=== PATIENT | male | born 1950 | race Caucasian/White ===

== ENCOUNTER 2023-03-06 13:39 | Inpatient (IN) ==
--- OUTSIDE RECORDS SUMMARY | 2023-03-06 13:45 | External Medical Summary ---
Author Name Unknown Address Unknown Organization K01:[facility] [place] [address] [facility] [address] Laboratory Report Ordering Provider Test Date Status INDIA MCCRARY 01/13/2023 09:25:32 Final Observation Date Value Abnormality Reference (Units ) Status SYNC LEUKOCYTES IN BLOOD BY AUTOMATED COUNT 01/13/2023 09:25:32 9.09 4.00-10.80 (K/uL) Final Segs 01/13/2023 09:25:32 41.9 40.0-75.0 (%) Final Lymphs % 01/13/2023 09:25:32 39.6 18.0-42.0 (%) Final Monos 01/13/2023 09:25:32 14.2 Above high normal 1.0-11.0 (%) Final Eosinophils 01/13/2023 09:25:32 3.1 0.0-6.0 (%) Final Basos 01/13/2023 09:25:32 0.9 0.0-2.0 (%) Final Immature Granulocyte, Percent 01/13/2023 09:25:32 0.3 0.0-2.0 (%) Final Absolute Segs 01/13/2023 09:25:32 3.81 1.80-7.70 (K/uL) Final Lymphs, absolute 01/13/2023 09:25:32 3.60 1.00-4.80 (K/ul) Final Monos, Abs 01/13/2023 09:25:32 1.29 Above high normal 0.00-1.10 (K/uL) Final Eos, Abs 01/13/2023 09:25:32 0.28 0.00-0.70 (K/uL) Final Basos, Abs 01/13/2023 09:25:32 0.08 0.00-0.20 (K/uL) Final Immature Granulocytes, Number 01/13/2023 09:25:32 0.03 0.00-0.20 (K/uL) Final Performing Location [facility] [place] [address] [facility] [address]
--- OUTSIDE RECORDS SUMMARY | 2023-03-06 13:45 | External Medical Summary | Summary of Care ---
Author Name Unknown Organization [facility] Address [address] [place] [address] Phone [phone] Care Team Providers Care Early Learning Teacher Name Role Phone Ginny Borjas DO Primary Care Provider Reason for Visit * Reason Onset Date Comments Health Maintenance 03/02/2023 Encounter Details Date Type Department Care Team (Late st Contact Info) Description 03/02/2023 Telephone Family Medicine [address] [phone] Ginny Borjas DO [address] [place] [address] [place] [address] Health Maintenance Allergies Active Allergy Reactions Criticality Noted Date Comments Cephalexin Hives High 05/11/2017 Hives, elev BP documented as of this encounter (statuses as of 03/02/2023) Medications Medication Sig Dispensed Refills Start Date End Date Status Vitamin E 180 MG (400 UNIT) Oral Capsule Take 1 Capsule by mouth in the morning. 0 02/26/2022 Active hydroCHLOROthiazide 12.5 MG Oral Tablet (Hydrodiuril) Take 1 Tablet by mouth in the morning. 90 Tablet 3 01/31/2023 Active Losartan Potassium 50 MG Oral Tablet (Cozaar) Take 1 Tablet by mouth in the morning. 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 Chronic kidney disease, stage 3a 03/17/2020 Overview: Per CKD protocol Generalized osteoarthritis 02/21/2018 Status post left hip replacement 08/31/2017 Status post right knee replacement 05/11/2017 Status post left knee replacement 05/11/2017 Snores 05/11/2017 Essential hypertension with goal blood pressure less than 140/90 documented as of this encounter (statuses as of 03/02/2023) Resolved Problems Problem Noted Date Diagnosed Date Resolved Date Superficial thrombophlebitis of left upper extremity 02/23/2022 06/07/2022 Acute bronchitis, antibiotics not indicated 11/28/2018 02/20/2020 Body mass index (BMI) of 40. 0 to 44.9 in adult 03/20/2018 11/17/2018 Overview: Per Obesity protocol #1 Primary osteoarthritis of left hip 05/11/2017 08/31/2017 Essential hypertension 05/11/201710/26 Morbid obesity with BMI of 40.0-44.9, adult 05/19/2022 Overview: Per Obesity protocol documented as of this encounter (statuses as of 03/02/2023) Immunizations Name Administration Dates Next Due COVID-19 mRNA, LNP-s, No Pre serve, 2-Dose Series (Moderna) 12/28/2020,05/14/2020,04/16/2020 Pneumococcal Conjugate Vacc, 13 Valent (Prevnar) 05/11/2017 Pneumococcal Polysaccharide PPV23 (Pneumovax) 10/26/2018 Season Influenza, Quad, PF, Adjuvanted, 65+ Yrs, IM (FLUAD) 11/27/2019 Seasonal Influenza, PF, 6 M & above, IM , (FluLaval or Fluzone) 12/05/2017,12/08/2014,12/08/2013 Seasonal Influenza, Quadriva lent Hd (Fluzone Hd) 02/17/2022 Seasonal Influenza, Trivalen t, Adjuvanted, 65+ yrs 11/05/2020,02/02/2019 TDAP (age 10 and older)(Boostrix) 05/11/2017,03/2006 documented as of this encounter Social History Tobacco Use Types Packs/Day Years Used Date Smoking Tobacco: Never Smokeless Tobacco: Former Alcohol Use Standard Drinks/Week Comments Yes 8 (1 standard drink = 0.6 oz pure alcohol) He is drinking nonalcoholic beer now AUDIT-C Answer Date Recorded Frequency of Alcohol Consumption 2-3 times a wee k 02/21/2018 Average Number of Drinks Not on file 018 Frequency of Binge Drinking Not on file 02/04 PHQ-2 Answer Date Recorded PHQ-2 Score 0 11/27/2019 Hunger Vital Sign Answer Date Recorded Worried About Running Out of Food in the Last Ye ar Never true 11/27/2019 Ran Out of Food in the Last Year Never true 11/27/2019 Sex and Gender Information Value Date Recorded Sex Assigned at Not on file Gender Identity Not on file Sexual Orientation Not on file Job Start Date Occupation Industry Not on file Not on file Not on file documented as of this encounter Miscellaneous Notes * Telephone Encounter - Sarah Tipton LPN - 03/02/2023 2:01 PM EST Care Gaps Comprehensive Care Outreach Last Office/Telemedicine Visit: 01/19/2022 (in office), Visit date not found (telemedicine) Next Office Visit: Visit date not found Hemoglobin AIC Results: Lab Results Component Value Date/Time HEMOGLOBIN A1C - [facility] 5.7 (H) 04/17/2021 10:30 AM HEMOGLOBIN A1C - [facility] 5.5 02/20/2020 10:39 AM Reviewed Health Maintenance below: Health Maintenance Topic Date Due Colorectal Cancer Screening Never done Zoster Vaccines (1 of 2) Never done Depression Screening 11/26/2020 Albumin/Creatinine Ratio 02/19/2021 CKD PHOS USE SMARTSET 57846 04/17/2022 Influenza Vaccine (FLU shot) (1) 11/05/2022 COVID-19 Vaccine ( season) 2022 GFR 07/14/2023 Colon Urine/labs ov Care Gap Outreach Action Taken: Unable to reach no vm documented in this encounter Plan of Treatment Health Maintenance Due Date Last Done Comments Cologuard 1996 Colonoscopy 1996 Colorectal Cancer Screening 1996 Fecal Occult Blood Test 1996 Sigmoidoscopy 1996 Zoster Vaccines (1 of 2) 2001 Depression Screening 11/26/2020 11/27/2019 Albumin/Creatinine Ratio 02/19/2021 02/20/2020, 10/06 CKD PHOS USE SMARTSET [id number] 04/17/2022 04/17/2021 COVID-19 Vaccine ( season) 2022 12/28/2020, 05/14/2020, 04/16/2020 Influenza Vaccine (FLU shot) (#1) 2022 02/17/2022, 11/05/2020, 11/27/2019, Additional history exists GFR 07/14/2023 01/13/2023, 04/07, 03/25/2020, Additional history exists Lipid Panel 10/27/2023 10/26/2018 CKD HGB USE SMARTSET 21482 01/14/202401/13, 01/13/2023, 10/26/2018, Additional history exists DTaP,Tdap,and Td Vaccines (3 - Td or Tdap) 05/12/2027 05/11/2017, 08/05/2006 Pneumococcal Vaccine: 65+ Years Completed 10/26/2018, 05/11/2017 GARDASIL-HPV IMMUNIZATION SERIES Aged Out No longer eligible based on patient's age to complete this topic Hepatitis B Aged Out No longer eligi ble based on patient's age to complete this topic MENINGOCOCCAL (MENACTRA/MENVEO) Aged Out No longer eligible based on patient's age to complete this topic documented as of this encounter Medical Devices Not on filedocumented as of this encounter Care Teams Early Learning Teacher Relationship Specialty Start Date End Date Ginny Borjas DO [address] [place] [address] [place] [phone] PCP - General Internal Medicine 02/21/18 documented as of this encounter
--- OUTSIDE RECORDS SUMMARY | 2023-03-06 13:45 | External Medical Summary | Summary of Care ---
Author Name Unknown Organization [facility] Address [address] [place] [facility] [place] [address] Phone [phone] Care Team Providers Care Adjusto Writer Operator Name Role Phone [place] Ginnymariano Amin Primary Care Provider + [phone] Reason for Visit * Reason Comments Acute Encounter Details Date Type Department Care Team (Late st Contact Info) Description 03/04/2023 9:20 AM EST Office Visit Family Medicine [address] [phone] Lian De Paz MD [address] [place] [address] [place] [id number] Neuralgia* Allergies Active Allergy Reactions Criticality Noted Date Comments Cephalexin Hives High 05/11/2017 Hives, elev BP documented as of this encounter (statuses as of 03/04/2023) Medications Medication Sig Dispensed Refills Start Date End Date Status hydroCHLOROthiaz micah 12.5 MG Oral Tablet (Hydrodiuril) Take 1 Tablet by mouth in the morning. 90 Tablet 3 01/31/2023 Active Losartan Potassium 50 MG Oral Tablet (Cozaar) Take 1 Tablet by mouth in the morning. 90 Tablet 3 01/31/2023 Active Gabapentin 100 MG Oral Capsule (Neurontin)Indic ations:Neuralgia Take 1 Capsule by mouth in the morning and 1 Capsule at noon and 1 Capsule before bedtime. 90 Capsule 1 03/04/2023 Active Lidocaine 0.5 % External GelIndications:N euralgia Apply topically to affected area daily as needed for Pain. Apply to the affected area 170 g 0 03/04/2023 Active Vitamin E 180 MG (400 UNIT) Oral Capsule Take 1 Capsule by mouth in the morning. 0 02/26/2022 03/04/2023 Discontinued (Patient preference/d iscontinuati on) documented as of this encounter (statuses as of 03/04/2023) Active Problems Problem Noted Date Diagnosed Date [...] as of this encounter (statuses as of 03/04/2023) Resolved Problems Problem Noted Date Diagnosed Date [...] as of this encounter (statuses as of 03/04/2023) Immunizations Name Administration Dates Next Due COVID-19 [...] on file documented as of this encounter Last Filed Vital Signs Vital Sign Reading Time Taken Comments Blood Pressure 132/76 03/04/2023 9:15 AM EST Pulse 88 03/04/2023 9:15 AM EST Temperature 35.8 C (96.5 F) 03/04/2023 9:15 AM ES T Respiratory Rate - - Oxygen Saturation 94% 03/04/2023 9:15 AM EST Inhaled Oxygen Concentration - - Weight 148.4 kg (327 lb 3.2 oz) 03/04/2023 9:15 AM EST Height - - Body Mass Index 42.01 09/30/2021 10:19 AM EDT documented in this encounter Progress Notes * Lian De Paz MD - 03/04/2023 9:19 AM EST Subjective: HPI: Washington Simpson is a 72 year old male with hx of HTN, CKD III seen for Pt was dx with shingles 1 month ago - on the R side of the chest - denied any fever - but having pain on the shingle area ---- denied any rash ---- lidocaine helps Patient Active Problem List Diagnosis Code Status post right knee replacement Z96.651 Status post left knee replacement Z96.652 Snores R06.83 Status post left hip replacement Z96.642 Generalized osteoarthritis M15.9 Essential hypertension with goal blood pressure less than 140/90 I10 Chronic kidney disease, stage 3a N18.31 Recurrent thrombus I82.91 Body mass index (BMI) of 45.0 to 49.9 in adult ([facility]) Z68.42 Current Outpatient Medications Medication Sig Dispense Refill hydroCHLOROthiazide 12.5 MG Oral Tablet (Hydrodiuril) Take 1 Tablet by mouth in the morning. 90 Tablet 3 Losartan Potassium 50 MG Oral Tablet (Cozaar) Take 1 Tablet by mouth in the morning. 90 Tablet 3 Gabapentin 100 MG Oral Capsule (Neurontin) Take 1 Capsule by mouth in the morning and 1 Capsule at noon and 1 Capsule before bedtime. 90 Capsule 1 No current facility-administered medications for this visit. 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 Essential hypertension with goal blood pressure less than 140/90 Morbid obesity with BMI of 40.0-44.9, adult (HCC) S/P TKR (total knee replacement), left orginal replacement at age 22 (1980), revision 2000 S/P TKR (total knee replacement), right previous left TKR worn out, history of staph infection treated prior to revision Past Surgical History: Procedure Laterality Date ARTHROPLASTY KNEE TOTAL Left 1980 revised 2000 ARTHROPLASTY KNEE TOTAL Right 2006 INSERTION OF LENS PROSTHESIS Right 12/24 REMOVE TONSILS & ADENOIDS, UNDER 12 TOTAL HIP REPLACEMENT & PROSTHESIS Left 2017 VASC DUPLEX VENOUS LE UNILAT Left 09/30/2021 clot in left superficial greater saphenous vein Review of patient's allergies indicates: Allergen Reactions Keflex [Cephalexin] Hives Hives, elev BP Family History Problem Relation Age of Onset Breast Cancer Mother Cancer Father 84 lung Stroke Father 84 No Known Problems Sister adopted Other (childbirth) Grandmother (Maternal) 32 Other (Other) Grandfather (Maternal) 97 Other (Other) Grandmother (Paternal) 84 Other (Other) Grandfather (Paternal) 85 Social History Tobacco Use Smoking status: Never Smokeless tobacco: Former Substance Use Topics Alcohol use: Yes Alcohol/week: 8.0 standard drinks of alcohol Types: 8 12 oz of beer per week Comment: He is drinking nonalcoholic beer now Vaping/E-Cigarette Use Vaping/E-Cigarette Substances Vaping/E-Cigarette Devices ROS: -Per HPI OBJECTIVE: BP 132/76 | Pulse 88 | Temp 35.8 C (96.5 F) | Wt (!) 148.4 kg (327 lb 3.2 oz) | SpO2 94% | BMI 42.01 kg/m | BSA 2.78 m PHYSICAL EXAM: Skin: shingles area healing well, no vesicles ASSESSMENT/PLAN: Neuralgia (Primary) - Gabapentin 100 MG Oral Capsule (Neurontin); Take 1 Capsule by mouth in the morning and 1 Capsule at noon and 1 Capsule before bedtime. Lian De Paz MD Family medicine[address] [id number] documented in this encounter Nursing Notes * Jami Mejia CMA - 03/04/2023 9:15 AM EST He has shingles and he still has the pain and burning. He was seen at [facility]. documented in this encounter Plan of Treatment Health Maintenance Due Date Last Done Comments Cologuard 1996 Colonoscopy 1996 Colorectal Cancer Screening 1996 Fecal Occult Blood Test 1996 Sigmoidoscopy 1996 Zoster Vaccines (1 of 2) 2001 Depression Screening 11/26/2020 11/27/2019 Albumin/Creatinine Ratio 02/19/2021 02/20/2020, 10/06 CKD PHOS USE SMARTSET 70787 04/17/2022 04/17/2021 COVID-19 Vaccine ( season) 2022 12/28/2020, 05/14/2020, 04/16/2020 Influenza Vaccine (FLU shot) (#1) 2022 02/17/2022, 11/05/2020, 11/27/2019, Additional history exists GFR 07/14/2023 01/13/2023, 04/07, 03/25/2020, Additional history exists Lipid Panel 10/27/2023 10/26/2018 CKD HGB USE SMARTSET 04791 01/14/202401/13, 01/13/2023, 10/26/2018, Additional history exists DTaP,Tdap,and [...] Not on filedocumented as of this encounter Visit Diagnoses Diagnosis Neuralgia- Primary Neuralgia, neuritis, and radiculitis, unspecified documented in this encounter Care Teams Adjusto Writer Operator Relationship Specialty Start Date End Date Ginny Borjas DO [address] [place] [address] [place] [phone] PCP - General Internal Medicine 02/21/18 documented as of this encounter"
--- OUTSIDE RECORDS SUMMARY | 2023-03-06 13:45 | External Medical Summary ---
Author Name Unknown Address Unknown Organization K01:LABORATORY [facility] [place] - [address] [facility] [address] Laboratory Report Ordering Provider Test Date Status INDIA MCCRARY 01/13/2023 09:25:32 Final Observation Date Value Abnormality Reference (Units ) Status BUN 01/13/2023 09:25:32 16 6-20 (mg/dL) Final Creatinine 01/13/2023 09:25:32 1.3 Above high normal 0.6-1.2 (mg/dL) Final Glomerular filtration rate/1.73 sq M.predicted [Volume Rate/Area] in Serum, Plasma or Blood by Creatinine-based formula (CKD-EPI) 01/13/2023 09:25:32 61 >=60 (mL/min) Final eGFR is calculated based on the CKD-EPI 2020 equation SODIUM 01/13/2023 09:25:32 140 135-146 (m mol/L) Final Potassium 01/13/2023 09:25:32 4.7 3.5-5.1 (m mol/L) Final Cl 01/13/2023 09:25:32 102 98-107 (mm ol/L) Final CO2 01/13/2023 09:25:32 28 22-32 (mmo l/L) Final Anion gap 01/13/2023 09:25:32 10 7-15 (mmol /L) Final Glucose 01/13/2023 09:25:32 93 70-120 (mg /dL) Final Albumin 01/13/2023 09:25:32 4.1 3.8-5.0 (g /dL) Final AST (Aspartate aminotransferase) 01/13/2023 09:25:32 14 10-50 (U/L) Final Alk Phos 01/13/2023 09:25:32 78 35-130 (U/ L) Final Bilirubin, Total 01/13/2023 09:25:32 1.1 <=1 .2 (mg/dL) Final Calcium 01/13/2023 09:25:32 9.3 8.4-10.2 ( mg/dL) Final Protein 01/13/2023 09:25:32 6.4 6.0-8.3 (g /dL) Final ALT (Alanine aminotransferase) 01/13/2023 09:25:32 19 10-50 (U/L) Final Performing Location LABORATORY [facility] [place] - [facility] [address] [facility] [address]
--- OUTSIDE RECORDS SUMMARY | 2023-03-06 13:45 | External Medical Summary | Summary of Care ---
Author Name Unknown Organization [facility] Address [address] [place] [address] Phone [phone] Care Team Providers Care Rotary Slicing Machine Operator Name Role Phone Ginny Borjas DO Primary Care Provider Reason for Visit * Reason Onset Date Comments Medication Refill 01/28/2023 Encounter Details Date Type Department Care Team (Late st Contact Info) Description 01/28/2023 Refill Family Medicine [address] [phone] Ginny Borjas DO [address] [place] [address] [place] [address] Allergies Active Allergy Reactions Criticality Noted Date Comments Cephalexin Hives High 05/11/2017 Hives, elev BP documented as of this encounter (statuses as of 01/31/2023) Medications Medication Sig Dispensed Refills Start Date End Date Status Vitamin E 180 MG (400 UNIT) Oral Capsule Take 1 Capsule by mouth in the morning. 0 02/26/2022 Active hydroCHLOROthiazi de 12.5 MG Oral Tablet (Hydrodiuril) Take 1 Tablet by mouth in the morning. 90 Tablet 3 01/31/2023 Active Losartan Potassium 50 MG Oral Tablet (Cozaar) Take 1 Tablet by mouth in the morning. 90 Tablet 3 01/31/2023 Active Losartan Potassium 50 MG Oral Tablet (Cozaar) Take 1 Tablet (50 mg) by mouth in the morning. 90 Tablet 3 02/05/2022 01/28/2023 Discontinued (Refill) hydroCHLOROthiazi de 12.5 MG Oral Tablet (Hydrodiuril) Take 1 Tablet (12.5 mg) by mouth in the morning. 90 Tablet 3 02/05/2022 01/28/2023 Discontinued (Refill) documented as of this encounter (statuses as of 01/31/2023) Active Problems Problem Noted Date Diagnosed Date [...] as of this encounter (statuses as of 01/31/2023) Resolved Problems Problem Noted Date Diagnosed Date [...] as of this encounter (statuses as of 01/31/2023) Immunizations Name Administration Dates Next Due COVID-19 mRNA, LNP-s, No Pre serve, 2-Dose Series (Moderna) 12/28/2020,05/14/2020,04/16/2020 Pneumococcal Conjugate Vacc, 13 Valent (Prevnar) 05/11/2017 Pneumococcal Polysaccharide PPV23 (Pneumovax) 10/26/2018 SEASONAL INFLUENZA, PF, 6 M & Above, IM , (FLULAVAL or FLUZONE) 12/05/2017,12/08/2014,12/08/2013 Season Influenza, Quad, PF, Adjuvanted, 65+ Yrs, IM (FLUAD) 11/27/2019 Seasonal Influenza, Quadriva lent Hd (Fluzone Hd) [...] encounter Miscellaneous Notes * Telephone Encounter - Gissel Hwang MD - 01/31/2023 6:03 PM EST Signed Prescriptions: Disp Refills hydroCHLOROthiazide 12.5 MG Oral Tablet (H*90 Tab*3 Sig: Take 1 Tablet by mouth in the morning. Authorizing Provider: GISSEL HWANG Losartan Potassium 50 MG Oral Tablet (Coza*90 Tab*3 Sig: Take 1 Tablet by mouth in the morning. Authorizing Provider: GISSEL HWANG * Telephone Encounter - Jami Mejia CMA - 01/31/2023 5:08 PM ESTPending Prescriptions: Disp Refills hydroCHLOROthiazide 12.5 MG Oral Tablet (H*90 Tab*3 Sig: Take 1 Tablet by mouth in the morning. Losartan Potassium 50 MG Oral Tablet (Coza*90 Tab*3 Sig: Take 1 Tablet by mouth in the morning. * Telephone Encounter - Phoebe Queen OSA - 01/28/2023 11:55 AM EST Did you pend patient's preferred pharmacy and medication before forwarding?yes Pharmacy: [id number] Pending Prescriptions: Disp Refills hydroCHLOROthiazide 12.5 MG Oral Tablet (*90 Tab*3 Sig: Take 1 Tablet by mouth in the morning. Losartan Potassium 50 MG Oral Tablet (Coz*90 Tab*3 Sig: Take 1 Tablet by mouth in the morning. Last Visit: 01/19/2022 (in office), Visit date not found (telemedicine) Next Visit: Visit date not found If no future appointments scheduled, and last appointment is greater than a year ago, please schedule patient for a follow-up appointment Last date the medication was ordered: 02.05.2022 Is this request for a controlled substance?No Urine Drug Screen:No results found for this or any previous visit. Patient Phone Numbers Labs: Lab Results Component Value Date/Time CREAT 1.3 (H) 01/13/2023 09:25 AM CREAT 1.3 (H) 03/25/2020 12:12 PM POTASSIUM 4.7 01/13/2023 09:25 AM POTASSIUM 4.6 03/25/2020 12:12 PM LDLCALC 85 10/26/2018 04:27 PM LDLDIRECT NOT APPLICABLE 10/26/2018 04:27 PM ALT 19 01/13/2023 09:25 AM ALT 18 10/26/2018 04:27 PM HGBA1C 5.7 (H) 04/17/2021 10:30 AM HGBA1C 5.5 02/20/2020 10:39 AM documented in this encounter Plan of Treatment Health Maintenance Due Date Last Done Comments Cologuard 1996 Colonoscopy 1996 Colorectal Cancer Screening 1996 Fecal Occult Blood Test 1996 Sigmoidoscopy 1996 Zoster Vaccines (1 of 2) 2001 Depression Screening 11/26/2020 11/27/2019 Albumin/Creatinine Ratio 02/19/2021 02/20/2020, 10/06 CKD PHOS USE SMARTSET 36373 04/17/2022 04/17/2021 COVID-19 Vaccine ( season) 2022 12/28/2020, 05/14/2020, 04/16/2020 Influenza Vaccine (FLU shot) (#1) 2022 02/17/2022, 11/05/2020, 11/27/2019, Additional history exists GFR 07/14/2023 01/13/2023, 04/07, 03/25/2020, Additional history exists Lipid Panel 10/27/2023 10/26/2018 CKD HGB USE SMARTSET [id number] 01/14/202401/13, 01/13/2023, 10/26/2018, Additional history exists DTaP,Tdap,and [...] filedocumented as of this encounter Care Teams Rotary Slicing Machine Operator Relationship Specialty Start Date End Date Ginny Borjas DO [address] [place] [address] [place] [id number] PCP - General Internal Medicine 02/21/18 documented as of this encounter
--- OUTSIDE RECORDS SUMMARY | 2023-03-06 13:45 | External Medical Summary | Summary of Care ---
Author Name Unknown Organization [facility] Address [address] [place] [address] Phone [phone] Care Team Providers Care Data Management Name Role Phone Claudia Borjasanda Eloisa GARCIA Primary Care Provider [phone] Reason for Visit * Reason Comments Outpatient Testing Encounter Details Date Type Department Care Team (Latest Contact Info) Description 01/13/2023 9:30 AM EST Laboratory Laboratory [address] [place] [phone] [facility] Lab [address] [place] [id number] Superficial thrombophlebitis of left upper extremity Allergies Active Allergy Reactions Criticality Noted Date Comments Cephalexin Hives High 05/11/2017 Hives, elev BP documented as of this encounter (statuses as of 01/13/2023) Medications Medication Sig Dispensed Refills Start Date End Date Status Losartan Potassium 50 MG Oral Tablet (Cozaar) Take 1 Tablet (50 mg) by mouth in the morning. 90 Tablet 3 02/05/2022 Active hydroCHLOROthiazide 12.5 MG Oral Tablet (Hydrodiuril) Take 1 Tablet (12.5 mg) by mouth in the morning. 90 Tablet 3 02/05/2022 Active Vitamin E 180 MG (400 UNIT) Oral Capsule Take 1 Capsule by mouth in the morning. 0 02/26/2022 Active documented as of this encounter (statuses as of 01/13/2023) Active Problems Problem Noted Date Diagnosed Date [...] as of this encounter (statuses as of 01/13/2023) Resolved Problems Problem Noted Date Diagnosed Date [...] as of this encounter (statuses as of 01/13/2023) Immunizations Name Administration Dates Next Due COVID-19 [...] on file documented as of this encounter Plan of Treatment Pending Results Name Type Priority Associated Diagnoses Date /Time CBC WITH WBC DIFFERENTIAL Lab Routine Superficial thrombophlebitis of left upper extremity 01/13/2023 9:25 AM EST COMPREHENSIVE METABOLIC PANEL Lab Routine Superficial thrombophlebitis of left upper extremity 01/13/2023 9:25 AM EST CBC Lab Routine Superficial thrombophlebitis of left upper extremity 01/13/2023 9:25 AM EST DIFFERENTIAL, AUTOMATED Lab Routine Superficial thrombophlebitis of left upper extremity 01/13/2023 9:25 AM EST Health Maintenance Due Date Last Done Comments Cologuard 1996 Colonoscopy 1996 Colorectal Cancer Screening 1996 Fecal Occult Blood Test 1996 Sigmoidoscopy 1996 Zoster Vaccines (1 of 2) 2001 CKD HGB USE SMARTSET 24080 10/27/2019 10/26/2018, Depression Screening 11/26/2020 11/27/2019 Albumin/Creatinine Ratio 02/19/2021 02/20/2020, 10/06 GFR 10/15/2021 04/17/2021, 03/07, 02/20/2020, Additional history exists CKD PHOS USE SMARTSET 40899 04/17/2022 04/17/2021 COVID-19 Vaccine ( season) 2022 12/28/2020, 05/14/2020, 04/16/2020 Influenza Vaccine (FLU shot) (#1) 2022 02/17/2022, 11/05/2020, 11/27/2019, Additional history exists Lipid Panel 10/27/2023 10/26/2018 DTaP,Tdap,and Td Vaccines (3 - Td or [...] as of this encounter Visit Diagnoses Diagnosis Superficial thrombophlebitis of left upper extremity documented in this encounter Care Teams Data Management Relationship Specialty Start Date End Date Ginny Borjas DO [address] [place] [address] [place] [phone] PCP - General Internal Medicine 02/21/18 documented as of this encounter
--- OUTSIDE RECORDS SUMMARY | 2023-03-06 13:45 | External Medical Summary ---
Author Name Unknown Address Unknown Organization K01:[facility] [place] - [address] [facility] [address] Laboratory Report Ordering Provider Test Date Status [place] MCCRARY 01/13/2023 09:25:32 Final Observation Date Value Abnormality Reference (Units ) Status WBC, Total 01/13/2023 09:25:32 9.09 4.00-10.80 (K/uL) Final RBC 01/13/2023 09:25:32 4.80 4.50-5.25 (M/uL) Final Hemoglobin 01/13/2023 09:25:32 15.8 14.0-16.8 (g/dL) Final HCT 01/13/2023 09:25:32 49.8 Above high normal 40.0-48.4 (%) Final MCV 01/13/2023 09:25:32 103.8 82.0-99.5 (fL) Final MCH 01/13/2023 09:25:32 32.9 27.0-34.0 (pg) Final MCHC 01/13/2023 09:25:32 31.7 32.0-36.0 (g/dL) Final RDW 01/13/2023 09:25:32 13.8 11.5-15.5 (%) Final Platelets 01/13/2023 09:25:32 282 140-400 (K/uL) Final MPV 01/13/2023 09:25:32 11.0 6.6-11.1 (fL) Final Nucleated erythrocytes/100 leukocytes [Ratio] in Blood by Automated count 01/13/2023 09:25:32 0 <=0 (/100 WBCs) Final Performing Location [facility] - [address] [place] [address]
--- NOTE | 2023-03-06 13:47 | ED Triage Note ---
Date of Service March 06, 2023 Provider in Triage Author: Any Thompson History of Present Illness This patient was briefly evaluated while in triage. An abbreviated physical exam was performed. This patient is a 72-year-old Male who presents to the ED for evaluation of right sided chest pain. Patient states he was diagnosed with shingles a month ago and started on medication for that. He states this was on his right chest/back as well as down his right arm. He has had continued pain on the right side of the chest. Over the past 2 weeks he has felt some shortness of breath, especially with walking. He does report a history of superficial blood clots but no DVT or PE. He believes he had a hypercoagulability workup which was negative. He takes ASA but no other anticoagulants. Physical Exam VITALS: Vitals are noted on the nurse's note and reviewed by myself. GENERAL: This is a 72-year-old male, in no acute distress, nondiaphoretic, sitting in a wheelchair in triage. HEART: Regular rate and rhythm without murmurs gallops or rubs. LUNGS: Clear to auscultation bilaterally without wheezes, rales or rhonchi. ABDOMEN: Positive bowel sounds x 4. Soft, nontender to palpation. NEURO: Patient was alert and oriented to person place and time. Initial orders for labs and / or imaging were placed and patient was placed in the waiting area until a bed is available. Please see further documentation for the full ED course.
--- NOTE | 2023-03-06 14:06 | XRay Report ---
SINGLE VIEW CHEST CLINICAL HISTORY: Atypical chest pain. FINDINGS: An AP, portable, upright chest radiograph is obtained. No prior studies are available for c omparison at the time of dictation. The heart is enlarged. The pulmonary vasculature is noncongested. Nonspecific interstitial thickening is likely chronic. There is mild bibasilar scarring/atelectasis. The lungs and pleural spaces are otherwise clear. No pneumothorax is seen. The skeletal structures a re osteopenic. The bony thorax is grossly intact. IMPRESSION: Cardiomegaly with no acute cardiopulmonary abnormality identified. ACT 112: Negative or not required by law. Electronically signed by: Bandar Rasheed M.D. 03/06/2023 2:05 PM
[2023-03-06 15:11] LABS: Basophils # (auto) 0.04 K/uL (0.00-0.20); Basophils % (auto) 0.4 %; Eosinophils # (auto) 0.06 K/uL (0.00-0.50); Eosinophils % (auto) 0.5 %; Hematocrit (blood only) 48.2 % (42.0-52.0); Hemoglobin 16.3 g/dl (14.0-18.0); Immature Granulocytes # (auto) 0.05 K/uL (0.01-0.20); Immature Granulocytes % (auto) 0.5 %; Lymphocytes # (auto) 1.54 K/uL (1.20-3.40); Lymphocytes % (auto) 13.9 %; Mean Corpuscular Hemoglobin 32.9 pg (25.0-34.0); Mean Corpuscular Hgb Conc 33.8 g/dL (32.0-36.0); Mean Corpuscular Volume 97.2 fL (80.0-100.0); Mean Platelet Volume 9.9 fL (9.4-12.4); Monocytes # (auto) 1.37 K/uL (0.11-0.59); Monocytes % (auto) 12.4 %; Neutrophils % (auto) 72.3 %; Platelet Count 170 K/uL (130-400); RDW Coefficient of Variation 13.8 % (11.5-14.5); RDW Standard Deviation 50.3 fL (36.4-46.3); Red Blood Count 4.96 M/uL (4.70-6.10); White Blood Count 11.06 K/ul (4.8-10.8)
--- NOTE | 2023-03-06 15:23 | Emergency Department Note ---
Impression & Plan Pulmonary embolism and infarction, Chest pain, Elevated troponin I level ED Provider Note NAME: ADAM BARRETT AGE: 72 SEX: M : 1950 ARRIVES VIA: Walk-In INFORMANT: Patient, ED PROVIDER(S): ED TEMP CHIEF COMPLAINT: Shortness of breath HPI: The patient is a 72-year-old male who presented to the emergency department for an evaluation of shortness of breath. The patient has been having problems of the course the last week. He also has been suffering with shingles on his right chest. He describes shortness of breath with exertion as well as pain over the shingles area. He denies have any lower extremity swelling. He used to take a blood thinner for superficial thrombophlebitis. He no longer takes medication. He has not been seen by his family doctor for the symptoms. The patient was evaluated in the ED formerly [facility] area. ROS: See above HPI for pertinent positives & negatives. A total of 10 systems reviewed and were otherwise negative. PAST MEDICAL HISTORY: See Below PAST SURGICAL HISTORY: See Below FAMILY HISTORY: See Below SOCIAL HISTORY: See Below HOME MEDICATIONS: See Below ALLERGIES: See Below VITALS: See Below PHYSICAL EXAMINATION: GENERAL: Patient is awake alert in no acute distress patient is resting comfortably and showing no signs of anxiety EYES: The conjunctivae are clear. The pupils are round and reactive. EARS, NOSE, MOUTH AND THROAT: The nose is without any evidence of any deformity. NECK: The neck is nontender and supple. RESPIRATORY: Normal respiratory effort is noted there is no evidence of wheezing rhonchi or rales CARDIOVASCULAR: Regular rate and rhythm noted there no murmurs rubs or gallops normal S1 normal S2. GASTROINTESTINAL: The abdomen is soft. Abdomen is nontender. MUSCULOSKELETAL/EXTREMITIES: There is no evidence of gross deformity full range of motion is noted in the hips and shoulders. SKIN: skin was warm and dry. Trace pedal edema was noted bilaterally. There is shingles noted on the right chest wall. NEUROLOGIC: Patient is awake alert and oriented x3 MEDICAL DECISION MAKING: The patient is a 72-year-old male who presented to the emergency department for an evaluation of chest pain. The patient describes right-sided chest pain as well as shortness of breath with exertion. The patient has a history of superficial thrombophlebitis but he is not currently on anticoagulation because this was in his past. The patient denies having any lower extremity swelling or pain at this time. The patient was initially evaluated in triage. I discussed patient's laboratory and radiographic studies with him. He was brought back to a room once his CAT scan was done. My interpretation of the CAT scan does reveal bilateral pulmonary emboli. He was started on heparin. Final report was reviewed. I discussed the patient's condition with him. I also discussed his condition with the on-call [facility]. They have agreed to evaluate the patient in the emergency department for further management and disposition. Triage Nursing notes reviewed. Prior medical records reviewed Vital Signs: reviewed and remarkable for hypertension. Differential diagnosis: Reactive airway disease, pneumonia, pneumothorax, COPD, CHF, infections, cardiac ischemia, pulmonary embolism, musculoskeletal, gastrointestinal, as well as other pathologies. ER treatment provided: See below Diagnostics interpreted by me: ECG: EKG was obtained in the emergency department. My interpretation is normal sinus rhythm at 87 bpm. Poor baseline was noted. Nonspecific ST segment abnormalities were noted. No previous tracing was available. Cardiac Monitoring: An order was placed for continuous cardiac monitoring. The monitor shows a rate of 84 bpm with sinus rhythm. Laboratory studies: As stated above and show below. Imaging studies: See below. Radiographic imaging was reviewed by myself Consultation(s): I discussed this case with Lilian who is on-call for the [facility] group. ED COURSE: Procedures: none Critical Care: I have personally spent greater than 45 minutes of critical care time in the direct management of this patient. This includes bedside care, interpretation of diagnostic studies, and testing, discussion with consultants, patient, and family members, and other required patient management activities. This 45 minutes is in excess of all separately billable procedures. Past Med/Surg History Medical History (Updated 03/06/23 @ 18:06 by Pierce Fagan DO) Hypertension Social History Smoking Status: Never smoker Feels Safe at Home: Yes Allergies Allergies Allergy/AdvReac Type Severity Reaction Status Date / Time cephalexin Allergy . Verified 12/15/19 16:16 Home Meds Home Medications Medication Instructions Recorded Confirmed olmesartan 20 1 tab PO DAILY 12/15/19 12/15/19 mg-hydrochlorothiazide 12.5 mg tablet Results & Data (ED) Vital Signs Vital Signs - 24 hr 03/06/23 13:45 03/06/23 17:59 03/06/23 17:59 Temperature 36.0 C L Temperature Source Temporal Artery Scan Pulse Rate 88 Pulse Rate [Apical] 84 Respiratory Rate 18 20 Respiratory Effort / Characteristics Non-Labored Non-Labored Spontaneous Respiratory Depth Normal Normal Respiratory Pattern Regular Blood Pressure 122/78 Blood Pressure [Right Arm] 154/76 H Blood Pressure Mean 92 Blood Pressure Mean [Right Arm] 102 Pulse Oximetry 94 97 Oxygen Delivery Method Room Air Room Air Room Air Sepsis Recent Fever Within 48 Hours No Sepsis New/Unexplained Change in Mental Status N/A Sepsis Action Taken by Nursing No Action Required Pulse Oximetry Post Tiitration 97 03/06/23 17:59 Temperature Temperature Source Pulse Rate Pulse Rate [Apical] Respiratory Rate Respiratory Effort / Characteristics Respiratory Depth Respiratory Pattern Blood Pressure Blood Pressure [Right Arm] Blood Pressure Mean Blood Pressure Mean [Right Arm] Pulse Oximetry 97 Oxygen Delivery Method Room Air Sepsis Recent Fever Within 48 Hours Sepsis New/Unexplained Change in Mental Status Sepsis Action Taken by Nursing Pulse Oximetry Post Tiitration Home Medications Current Medication List: was personally reviewed by me Laboratory Data Attestation: I reviewed the patient's lab results. 03/06/23 14:54 03/06/23 14:54 Lab Results 03/06/23 03/06/23 Range/Units 14:54 15:55 WBC 11.06 H (4.8-10.8) K/ul RBC 4.96 (4.70-6.10) M/uL Hgb 16.3 (14.0-18.0) g/dl Hct 48.2 (42.0-52.0) % MCV 97.2 (80.0-100.0) fL MCH 32.9 (25.0-34.0) pg MCHC 33.8 (32.0-36.0) g/dL RDW Std Deviation 50.3 H (36.4-46.3) fL RDW Coeff of Arias 13.8 (11.5-14.5) % Plt Count 170 (130-400) K/uL MPV 9.9 (9.4-12.4) fL Immature Gran % (Auto) 0.5 % Neut % (Auto) 72.3 % Lymph % (Auto) 13.9 % [place] % (Auto) 12.4 % Eos % (Auto) 0.5 % Baso % (Auto) 0.4 % Neut # (Auto) 8.00 H (1.40-6.50) K/uL Lymph # (Auto) 1.54 (1.20-3.40) K/uL Columbia # (Auto) 1.37 H (0.11-0.59) K/uL Eos # (Auto) 0.06 (0.00-0.50) K/uL Baso # (Auto) 0.04 (0.00-0.20) K/uL Immature Gran # (Auto) 0.05 (0.01-0.20) K/uL PT 11.6 (9.0-12.0) Seconds INR 1.1 (0.9-1.1) APTT 27 (21-31) Seconds PTT Ratio 1.0 D-Dimer 8950 H* (0-500) ug/L FEU Sodium 136 (136-145) mmol/L Potassium 3.3 L (3.5-5.1) mmol/L Chloride 100 (98-107) mmol/L Carbon Dioxide 27 (21-32) mmol/L Anion Gap 9 (3-11) BUN 19 (6-23) mg/dl Creatinine 1.27 (0.6-1.4) mg/dl Est Cr Clr Drug Dosing Not Reportable Est GFR ( Amer) 65.4 ml/min Est GFR (Non-Af Amer) 56.5 ml/min BUN/Creatinine Ratio 15.0 (10-20) Glucose 109 H (70-99(Fasting)) mg/dl Calcium 9.3 (8.6-10.3) mg/dl Total Bilirubin 2.4 H (0.2-1.0) mg/dl AST 20 (13-39) U/L ALT 31 (7-52) U/L Alkaline Phosphatase 65 (34-104) U/L Troponin I High Sens 38.9 H (0-20) pg/ml Total Protein 7.4 (6.0-8.3) gm/dl Albumin 4.1 (3.4-5.0) gm/dl Globulin 3.3 (2.5-4.0) gm/dl Albumin/Globulin Ratio 1.2 (0.9-2) Adenovirus (PCR) Not Detected (NotDetected) B. pertussis DNA (PCR) Not Detected (NotDetected) B.parapertussis DNA PCR Not Detected (NotDetected) C. pneumoniae DNA (PCR) Not Detected (NotDetected) Coronavirus OC43 (PCR) Not Detected (NotDetected) Coronavirus HKU1 (PCR) Not Detected (NotDetected) Coronavirus 229E (PCR) Not Detected (NotDetected) SARS-CoV-2 (PCR) Not Detected (NotDetected) Coronavirus NL63 (PCR) Not Detected (NotDetected) Human Metapneumovir PCR Not Detected (NotDetected) Influenza Type A (PCR) Not Detected (NotDetected) Influenza Type B (PCR) Not Detected (NotDetected) M. pneumoniae (PCR) Not Detected (NotDetected) Parainfluenza 1 (PCR) Not Detected (NotDetected) Parainfluenza 2 (PCR) Not Detected (NotDetected) Parainfluenza 3 (PCR) Not Detected (NotDetected) Parainfluenza 4 (PCR) Not Detected (NotDetected) RSV (PCR) Not Detected (NotDetected) Entero/Rhino (PCR) Not Detected (NotDetected) Administered Medications Heparin Sodium/Dextrose (Heparin Sodium/Dextrose) 25,000 units in 500 mls @ 39 mls/hr IV .[id number] [facility]; Protocol Stop: 04/05/23 17:59 Last Admin: 03/06/23 17:49 Dose: 1,950 units/hr, 39 mls/hr Documented By: TANG Co-signed By: BRADLEY Discontinued Medications Heparin Sodium (Porcine) (Heparin Sod (Porcine) 1000 Unit/Ml) 1 units IV NOW ONE Stop: 03/06/23 17:50 Last Admin: 03/06/23 17:50 Dose: 9,000 units Documented By: TANG Co-signed By: BRADLEY Ioversol (Optiray 320 125ml) 117 ml IV ONCE ONE Stop: 03/06/23 17:24 Last Admin: 03/06/23 17:24 Dose: 117 ml Documented By: PINA Imaging Data Attestation: I personally reviewed and interpreted this imaging study as follows: My Impression: CT of the chest was obtained in the emergency department. My interpretation is bilateral pulmonary emboli's. This appears to be in proximal vessels but not a saddle pulmonary embolism. Final report below. Radiologist's Impression: Chest X-Ray 03/06/23 13:48 SINGLE VIEW CHEST CLINICAL HISTORY: Atypical chest pain. FINDINGS: An AP, portable, upright chest radiograph is obtained. No prior studies are available for comparison at the time of dictation. The heart is enlarged. The pulmonary vasculature is noncongested. Nonspecific interstitial thickening is likely chronic. There is mild bibasilar scarring/atelectasis. The lungs and pleural spaces are otherwise clear. No pneumothorax is seen. The skeletal structures are osteopenic. The bony thorax is grossly intact. IMPRESSION: Cardiomegaly with no acute cardiopulmonary abnormality identified. ACT 112: Negative or not required by law. Electronically signed by: Bandar Rasheed M.D. 03/06/2023 2:05 PM Chest CTA 03/06/23 16:10 CT ANGIOGRAM OF THE CHEST CLINICAL HISTORY: Atypical chest pain. Dyspnea. COMPARISON STUDY: Chest x-ray dated 03/06/2023. TECHNIQUE: Following the IV administration of 117 cc of Optiray 320, CT angiogram of the chest was performed from the upper abdomen to the thoracic inlet utilizing the pulmonary embolus protocol. Images are reviewed in the axial, sagittal, and coronal planes. 3-D MIPS images are created and assessed. IV contrast was administered without complication. A dose lowering technique was utilized adhering to the principles of ALARA. CT DOSE: 1000.76 mGy.cm FINDINGS: Thyroid: Imaged portions of the thyroid gland are normal in size and attenuation. Thoracic aorta: There is atherosclerotic calcification of the thoracic aorta, which is normal in caliber and demonstrates standard 3-vessel arch anatomy. No dissection is seen. Pulmonary vasculature: The pulmonary trunk is normal in caliber. There is thrombus within the distal right main pulmonary artery. This extends into the right upper, middle, and lower lobe pulmonary arteries and segmental and subsegmental branches. There is also thrombus within the distal left main pulmonary artery. This extends into the left upper and lower lobe pulmonary arteries and the segmental and subsegmental branches. There is also a embolus within the lingular pulmonary artery. Heart: The heart is top normal in size and without pericardial effusion. The coronary arteries are densely calcified. Lungs and pleural spaces: Subpleural groundglass consolidation is seen at the left apex. There is scarring/atelectasis present at both lung bases. The trachea and central airways are clear. No pleural effusion is identified. Scattered subpleural nodules measuring up to 4 mm. Hospital Nurse nodules are seen in the left lower lobe on image #84, the right lower lobe on image #61, and the right middle lobe on images #88 and #94. These are of low suspicion. Mediastinum: There is no mediastinal lymphadenopathy. Nivia: Clear. Axillae: There is no axillary lymphadenopathy. Upper abdomen: Partially visualized upper abdominal viscera is within normal limits. Skeletal structures: The skeletal structures are osteopenic. Degenerative change is noted in the shoulders and spine. No lytic or blastic bony lesions are seen. IMPRESSION: 1. Extensive bilateral pulmonary embolus as above. 2. Subpleural groundglass consolidation at the left apex likely represents a pulmonary infarct. Correlate clinically for evidence of a superimposed infectious/inflammatory pneumonitis. 3. No pleural effusion is seen. 4. Advanced coronary artery atherosclerosis. 5. Additional findings as above. ACT 112: Negative or not required by law. Electronically signed by: Bandar Rasheed M.D. 03/06/2023 5:55 PM Discharge Plan Visit Data Chief Complaint: Chest Pain Stated Complaint: SOB, CHEST PAIN ED Provider: Pierce Fagan Discharge Problem: Pulmonary embolism and infarction, Chest pain, Elevated troponin I level Patient Disposition: Being Evaluated by Hospitalist Forms Stand Alone Forms: [employer] Prescriptions Prescriptions: No Action olmesartan-hydrochlorothiazide 20-12.5 mg tablet 1 tab PO DAILY Referrals Referrals: PCP,NO [Physician] - Discharge Problem: Chest pain Qualifiers: Chest pain type: unspecified Qualified Code(s): R07.9 - Chest pain, unspecified
[2023-03-06 15:32] LABS: Alanine Aminotransferase 31 U/L (7-52); Albumin Globulin Ratio 1.2 (0.9-2); Albumin Level 4.1 gm/dl (3.4-5.0); Alkaline Phosphatase 65 U/L (34-104); Anion Gap 9 (3-11); Aspartate Aminotransferase 20 U/L (13-39); Bilirubin,Total 2.4 mg/dl (0.2-1.0); Blood Urea Nitrogen 19 mg/dl (6-23); Calcium 9.3 mg/dl (8.6-10.3); Carbon Dioxide 27 mmol/L (21-32); Chloride 100 mmol/L (98-107); Est GFR (African American) 65.4 ml/min; Est GFR (Non-African American) 56.5 ml/min; Globulin 3.3 gm/dl (2.5-4.0); Glucose 109 mg/dl (70-99(Fasting)); Potassium 3.3 mmol/L (3.5-5.1); Sodium 136 mmol/L (136-145); Total Protein 7.4 gm/dl (6.0-8.3)
[2023-03-06 15:38] LABS: Troponin I High Sensitivity 38.9 pg/ml (0-20)
[2023-03-06 15:46] LABS: INR 1.1 (0.9-1.1); Partial Thromboplastin Time 27 Seconds (21-31); Prothrombin Time 11.6 Seconds (9.0-12.0)
[2023-03-06 16:04] LABS: D Dimer 8950 ug/L FEU (0-500)
[2023-03-06 16:59] LABS: Adenovirus PCR Not Detected (NotDetected); Bordetella parapertussis PCR Not Detected (NotDetected); Bordetella pertussis PCR Not Detected (NotDetected); Chlamydia pneumoniae PCR Not Detected (NotDetected); Coronavirus 229E PCR Not Detected (NotDetected); Coronavirus CoV-2 (COVID19)PCR Not Detected (NotDetected); Coronavirus HKU1 PCR Not Detected (NotDetected); Coronavirus NL63 PCR Not Detected (NotDetected); Coronavirus OC43PCR Not Detected (NotDetected); Human Metapneumovirus PCR Not Detected (NotDetected); Influenza A PCR Not Detected (NotDetected); Influenza B PCR Not Detected (NotDetected); Mycoplasma pneumoniae PCR Not Detected (NotDetected); Parainfluenza Virus 1 PCR Not Detected (NotDetected); Parainfluenza Virus 2 PCR Not Detected (NotDetected); Parainfluenza Virus 3 PCR Not Detected (NotDetected); Parainfluenza Virus 4 PCR Not Detected (NotDetected); Respiratory Syncytial VirusPCR Not Detected (NotDetected); Rhinovirus/Enterovirus PCR Not Detected (NotDetected)
[2023-03-06] MEDS ORDERED: OPTIRAY 320 125ml IV ONE (17:23)
[2023-03-06] MEDS ORDERED: Heparin IV Adult Wt-Based Standard w/ INITIAL Bolus Protocol IV STA (17:34)
[2023-03-06] MEDS ORDERED: HEPARIN SOD (PORCINE) 1000 UNIT/ML IV ONE ×2 (17:49→18:15)
[2023-03-06] MEDS: HEPARIN SODIUM/DEXTROSE 25,000 UNITS/500 ML BAG IV SCH (17:49)
--- NOTE | 2023-03-06 17:58 | CT Scan Report ---
CT ANGIOGRAM OF THE CHEST CLINICAL HISTORY: Atypical chest pain. Dyspnea. COMPARISON STUDY: Chest x-ray dated 03/06/2023. TECHNIQUE: Following the IV administration of 117 cc of Optiray 320, CT angiogram of the chest was pe rformed from the upper abdomen to the thoracic inlet utilizing the pulmonary embolus protocol. Images are reviewed in the axial, sagittal, and coronal planes. 3-D MIPS images are created and assessed. I V contrast was administered without complication. A dose lowering technique was utilized adhering to the principles of ALARA. CT DOSE: 1000.76 mGy.cm FINDINGS: Thyroid: Imaged portions of the thyroid gland are normal in size and attenuation. Thoracic aorta: There is atherosclerotic calcification of the thoracic aorta, which is normal in silvia denice and demonstrates standard 3-vessel arch anatomy. No dissection is seen. Pulmonary vasculature: The pulmonary trunk is normal in caliber. There is thrombus within the distal right main pulmonary artery. This extends into the right upper, middle, and lower lobe pulmonary edy casey and segmental and subsegmental branches. There is also thrombus within the distal left main pulm onary artery. This extends into the left upper and lower lobe pulmonary arteries and the segmental an d subsegmental branches. There is also a embolus within the lingular pulmonary artery. Heart: The heart is top normal in size and without pericardial effusion. The coronary arteries are de nsely calcified. Lungs and pleural spaces: Subpleural groundglass consolidation is seen at the left apex. There is sca rring/atelectasis present at both lung bases. The trachea and central airways are clear. No pleural e ffusion is identified. Scattered subpleural nodules measuring up to 4 mm. Nanny/Household Manager nodules are seen in the left lower lobe on image #84, the right lower lobe on image #61, and the right middle lob e on images #88 and #94. These are of low suspicion. Mediastinum: There is no mediastinal lymphadenopathy. Nivia: Clear. Axillae: There is no axillary lymphadenopathy. Upper abdomen: Partially visualized upper abdominal viscera is within normal limits. Skeletal structures: The skeletal structures are osteopenic. Degenerative change is noted in the shou lders and spine. No lytic or blastic bony lesions are seen. IMPRESSION: 1. Extensive bilateral pulmonary embolus as above. 2. Subpleural groundglass consolidation at the left apex likely represents a pulmonary infarct. Corre late clinically for evidence of a superimposed infectious/inflammatory pneumonitis. 3. No pleural effusion is seen. 4. Advanced coronary artery atherosclerosis. 5. Additional findings as above. ACT 112: Negative or not required by law. Electronically signed by: Bandar Rasheed M.D. 03/06/2023 5:55 PM
--- NOTE | 2023-03-06 18:14 | History & Physical Report ---
Date of Service March 06, 2023 Assessment & Plan (1) Pulmonary embolism and infarction: Plan: 72-year-old male with history of hypertension presenting with shortness of breath x 1 week EXTENSIVE BILATERAL PULMONARY EMBOLI Appears to be unprovoked No family history as per patient Hemodynamically stable On room air Not in respiratory distress CT scan noted Echocardiogram ordered Heparin drip standard dose with bolus ordered Will order hypercoagulable workup with a.m. labs Pulmonary service consult HYPERTENSION Continue losartan Hold HCTZ plan of care discussed with patient and his at the bedside in detail and at length all questions answered they are understanding, agreeable, comfortable with the plan of care History of Present Illness Chief Complaint: Shortness of breath x 1 week Primary Care Provider: Ginny Borjas DO 72-year-old male with history of hypertension presenting with shortness of breath x 1 week Patient started to have shortness of breath a week ago which persisted and progressed Then became associated with right-sided chest pain radiating to the back. No history of long drives, flights, surgery within the past 3 months. Patient has been relatively active. No cough, fevers or chills, sputum production, hemoptysis, etc. Allergies Allergy/AdvReac Type Severity Reaction Status Date / Time cephalexin Allergy . Verified 03/06/23 18:25 Home Medications Medication Instructions Recorded Confirmed Type aspirin 81 mg tablet 81 mg PO DAILY 03/06/23 03/06/23 History gabapentin 100 mg capsule 100 mg PO TID 03/06/23 03/06/23 History hydrochlorothiazide 12.5 mg tablet 12.5 mg PO QAM 03/06/23 03/06/23 History losartan 50 mg tablet 50 mg PO QAM 03/06/23 03/06/23 History Past Med/Surg History Medical History (Updated 03/07/23 @ 14:59 by Srini Devlin MD) Morbid obesity Hypertension Social History Smoking Status: Never smoker Hx Alcohol Use: Yes Alcohol type: beer Hx Substance Use: No Preferred Language: Georgian Communication Ability: Effective Plumbing Drafter Required: No Beliefs That Will Affect Care: None Current Living Situation: Spouse Other Information That Helps Us Care for You: No Feels Safe at Home: No Is there a partner from a previous relationship who is making you feel unsafe now?: No Any Concerns about Your Family Situation: No Would You Like to Speak to Someone About Your Situation: No Safety Concerns: Feels Safe At This Time Assistive Devices: None Review of Systems Review of Systems: all noted and negative except for above Physical Exam Physical Exam: General- oriented x 3, not in distress, speaks in sentences with no effort or accessory muscle use Eyes- anicteric Neck- no JVD Lungs- clear breath sounds bilaterally, no rales/wheezes Heart- normal rate, regular rhythm; no murmurs Abdomen- normal bowel sounds, nondistended, soft, nontender Extremities- no pretibial edema, no calf tenderness Neuro- alert, oriented x 3; no gross focal neurologic deficits Skin- warm & dry Results & Data Results & Data Vital Signs (Past 12 Hours) Vital Signs Temp Pulse Pulse Resp BP BP Pulse Ox 03/06/23 17:59 97 03/06/23 17:59 84 20 154/76 H 97 03/06/23 17:59 03/06/23 13:45 36.0 C L 88 18 122/78 94 O2 Del Method 03/06/23 17:59 Room Air 03/06/23 17:59 Room Air 03/06/23 17:59 Room Air 03/06/23 13:45 Room Air all noted and reviewed including below Code Status & VTE Plan VTE Prophylaxis Plan VTE Prophylaxis will be ordered: Yes
[2023-03-06] MEDS ORDERED: Heparin IV Adult Wt-Based Standard *NO* INITIAL Bolus Protocol IV STA (20:36)
[2023-03-06] MEDS ORDERED: ONDANSETRON INJ 2 MG/ML 2 ML VIAL IV PRN (20:36)
[2023-03-06] MEDS ORDERED: ACETAMINOPHEN 325 MG TAB PO PRN (20:36)
[2023-03-06] MEDS ORDERED: hydrALAZINE HCL 20 MG/ML VIAL IV PRN (20:36)
[2023-03-06] MEDS ORDERED: POTASSIUM CHLORIDE CRTAB 20 MEQ TABCR PO STA (20:36)
[2023-03-06] MEDS ORDERED: HEPARIN SODIUM/DEXTROSE 25,000 UNITS/500 ML BAG IV SCH (20:36)
[2023-03-06] MEDS: SODIUM CHLORIDE 0.9% 1,000 ML IV SCH (21:16)
[2023-03-06] MEDS: GABAPENTIN 100 MG CAP PO SCH (21:30)
[2023-03-06 21:48] LABS: Basophils # (auto) 0.06 K/uL (0.00-0.20); Basophils % (auto) 0.5 %; Eosinophils # (auto) 0.15 K/uL (0.00-0.50); Eosinophils % (auto) 1.3 %; Hematocrit (blood only) 44.7 % (42.0-52.0); Hemoglobin 15.5 g/dl (14.0-18.0); Immature Granulocytes # (auto) 0.05 K/uL (0.01-0.20); Immature Granulocytes % (auto) 0.4 %; Lymphocytes # (auto) 3.07 K/uL (1.20-3.40); Lymphocytes % (auto) 25.9 %; Mean Corpuscular Hemoglobin 33.3 pg (25.0-34.0); Mean Corpuscular Hgb Conc 34.7 g/dL (32.0-36.0); Mean Corpuscular Volume 95.9 fL (80.0-100.0); Mean Platelet Volume 9.8 fL (9.4-12.4); Monocytes # (auto) 1.59 K/uL (0.11-0.59); Monocytes % (auto) 13.4 %; Neutrophils # (auto) 6.95 K/uL (1.40-6.50); Neutrophils % (auto) 58.5 %; Platelet Count 180 K/uL (130-400); RDW Coefficient of Variation 13.9 % (11.5-14.5); RDW Standard Deviation 49.1 fL (36.4-46.3); Red Blood Count 4.66 M/uL (4.70-6.10); White Blood Count 11.87 K/ul (4.8-10.8)
[2023-03-06 22:00] LABS: Albumin Level 3.8 gm/dl (3.4-5.0); BUN Creatinine Ratio 13.4 (10-20); Bilirubin Direct 0.3 mg/dl (0-0.2); Bilirubin,Total 2.1 mg/dl (0.2-1.0); Creatinine Clr Calc Pharmacy 87.5 ml/min; Est GFR (African American) 70.8 ml/min; Est GFR (Non-African American) 61.1 ml/min; Potassium 3.2 mmol/L (3.5-5.1); Total Protein 6.9 gm/dl (6.0-8.3)
[2023-03-07 01:34] LABS: ANTI-Xa, UFH(UnfractionatedHep 0.56 IU/ml (0.3-0.7)
[2023-03-07 04:51] LABS: Basophils # (auto) 0.06 K/uL (0.00-0.20); Basophils % (auto) 0.6 %; Eosinophils # (auto) 0.13 K/uL (0.00-0.50); Eosinophils % (auto) 1.3 %; Hematocrit (blood only) 41.5 % (42.0-52.0); Hemoglobin 14.2 g/dl (14.0-18.0); Immature Granulocytes # (auto) 0.06 K/uL (0.01-0.20); Immature Granulocytes % (auto) 0.6 %; Lymphocytes # (auto) 2.72 K/uL (1.20-3.40); Lymphocytes % (auto) 27.8 %; Mean Corpuscular Hemoglobin 32.9 pg (25.0-34.0); Mean Corpuscular Hgb Conc 34.2 g/dL (32.0-36.0); Mean Corpuscular Volume 96.1 fL (80.0-100.0); Mean Platelet Volume 10.3 fL (9.4-12.4); Monocytes # (auto) 1.54 K/uL (0.11-0.59); Monocytes % (auto) 15.7 %; Neutrophils # (auto) 5.29 K/uL (1.40-6.50); Platelet Count 159 K/uL (130-400); RDW Coefficient of Variation 13.8 % (11.5-14.5); RDW Standard Deviation 48.9 fL (36.4-46.3); Red Blood Count 4.32 M/uL (4.70-6.10)
[2023-03-07 05:07] LABS: Albumin Level 3.5 gm/dl (3.4-5.0); BUN Creatinine Ratio 14.9 (10-20); Bilirubin Direct 0.3 mg/dl (0-0.2); Bilirubin,Total 1.9 mg/dl (0.2-1.0); Calcium 8.3 mg/dl (8.6-10.3); Creatinine Clr Calc Pharmacy 102.9 ml/min; Est GFR (African American) 86.3 ml/min; Est GFR (Non-African American) 74.5 ml/min; Potassium 3.1 mmol/L (3.5-5.1)
[2023-03-07 05:20] LABS: ANTI-Xa, UFH(UnfractionatedHep 0.67 IU/ml (0.3-0.7)
[2023-03-07] MEDS: HEPARIN SODIUM/DEXTROSE 25,000 UNITS/500 ML BAG IV SCH ×2 (05:47→17:19)
[2023-03-07] MEDS ORDERED: INFLUENZA VACCINE HIGH-DOSE (HD-IIV4) PF 65+ 0.7mL SYR IM ONE (08:00)
[2023-03-07] MEDS: LOSARTAN POTASSIUM 50 MG TAB PO SCH (08:47)
[2023-03-07] MEDS: GABAPENTIN 100 MG CAP PO SCH ×2 (08:47→09:19)
[2023-03-07] MEDS: SODIUM CHLORIDE 0.9% 1,000 ML IV SCH (08:47)
--- NOTE | 2023-03-07 14:31 | Electrocardiogram Report ---
Test Reason : Blood Pressure : / mmHG Vent. Rate : 087 BPM Atrial Rate : 087 BPM P-R Int : 166 ms QRS Dur : 090 ms QT Int : 366 ms P-R-T Axes : 068 -50 007 degrees QTc Int : 440 ms Poor data quality, interpretation may be adversely affected Normal sinus rhythm Pulmonary disease pattern Left anterior fascicular block Diffuse Minor Nonspecific T wave abnormality Abnormal ECG No previous ECGs available Confirmed by Dani Davis ([id number]) on 03/07/2023 2:31:22 PM Referred By: Confirmed By:Dani Davis
--- NOTE | 2023-03-07 14:59 | Pulmonary Consultation ---
Date of Consultation March 07, 2023 Assessment & Plan (1) Pulmonary embolism and infarction: (2) Chest pain: Chest pain type: unspecified Qualified Code(s): R07.9 - Chest pain, unspecified (3) Elevated troponin I level: (4) Morbid obesity: Plan 72-year-old male with a history of obesity and hypertension presenting with bilateral pulmonary emboli. He appears to have a left-sided pulmonary infarct in the left upper lobe region. Echocardiogram completed 03/07/2023 revealed mild right ventricular dilation and an RVSP of 40 to 50 mmHg. EF is 65 to 70%. Suspect mild pulm hypertension secondary to acute pulmonary embolism. He also had a mild troponin elevation likely secondary to right heart strain from pulmonary embolism. I would recommend a repeat echo in 3 months. I would recommend at least 6 months of anticoagulation and referral to outpatient hematology to consider further hypercoagulable workup and lifelong anticoagulation. He has had numerous superficial thrombosis in the past. I have also ordered an ultrasound of his lower extremities bilaterally to evaluate for DVT. If there is extensive DVT, may need to consider catheter directed thrombolysis and/or IVC filter placement at a tertiary center. I would recommend getting the patient out of bed to a chair and walking around tomorrow. Please check ambulatory pulse oximetry. He can likely go home on a DOAC in the next 1 to 2 days. Lastly, consider outpatient polysomnography to evaluate for obstructive sleep apnea. This can be ordered by his primary care physician. The patient is morbidly obese which increases his risk of RAH and recurrent venous thromboembolism. Weight loss encouraged. At this time, I have no further recommendations. Thank you for the consultation and allowing me to participate in the care of the patient. Please call with questions History of Present Illness Reason for Consultation: Extensive bilateral pulmonary embolism Attending Physician: Dejan Berrios MD History of Present Illness 72-year-old male who was admitted to the hospital due to increasing shortness of breath over the past 2 weeks. Patient notes that for the past 3 to 4 weeks he has had very painful shingles rash on his right chest. He has been sedentary and lethargic during this period of time. He notes that about 2 weeks ago he started having increasing shortness of breath with a sharp stabbing pain in the right side of his chest. He suspected that the pain was due to shingles. He became very short of breath with minimal exertion such as walking 10 feet. He ultimately decided to go to the ER last night. He does endorse a history of superficial venous thrombosis on his legs and arms after injury. He denies any prior history of DVT. Denies any significant family history of DVT. He denies any surgery in the past 3 months. He has generally been feeling well otherwise. He denies any weight loss or history of malignancy. He had a chest CTA 03/06/2023 which revealed extensive bilateral pulmonary emboli. Subpleural consolidation in the left lung apex concerning for infarct. Advanced coronary artery atherosclerosis was also seen. I reviewed the images myself on the radiology report. I agree with the report. Allergies Allergy/AdvReac Type Severity Reaction Status Date / Time cephalexin Allergy . Verified 03/06/23 18:25 Home Medications Medication Instructions Recorded Confirmed Type aspirin 81 mg tablet 81 mg PO DAILY 03/06/23 03/06/23 History gabapentin 100 mg capsule 100 mg PO TID 03/06/23 03/06/23 History hydrochlorothiazide 12.5 mg tablet 12.5 mg PO QAM 03/06/23 03/06/23 History losartan 50 mg tablet 50 mg PO QAM 03/06/23 03/06/23 History Patient History Medical History (Updated 03/07/23 @ 14:59 by Srini Devlin MD) Morbid obesity Hypertension Social History Smoking Status: Never smoker Hx Alcohol Use: Yes Alcohol type: beer Hx Substance Use: No Preferred Language: Chinese Communication Ability: Effective Seat Joiner Chainstitch Required: No Beliefs That Will Affect Care: None Current Living Situation: Spouse Other Information That Helps Us Care for You: No Feels Safe at Home: No Is there a partner from a previous relationship who is making you feel unsafe now?: No Any Concerns about Your Family Situation: No Would You Like to Speak to Someone About Your Situation: No Safety Concerns: Feels Safe At This Time Assistive Devices: None Review of Systems Review of Systems: All systems reviewed & are unremarkable except as noted in HPI & below Physical Exam Physical Exam: Constitutional: Patient appears to be of their stated age. Patient is in no apparent distress. Patient is well-developed. Eyes: Pupils are equal round and reactive to light. Conjunctivae are normal. Anicteric sclera. Ears nose, mouth and throat: Mallampati class 2. Normal posterior oropharynx. Uvula is midline. Neck: Trachea is midline. Visual inspection is normal. Respiratory: Clear to auscultation bilaterally. No use of accessory muscles. No significant clubbing noted. Cardiovascular: Regular rate and rhythm. No murmurs. No edema. Gastrointestinal: Normal bowel sounds, soft, nontender and nondistended. No hep atosplenomegaly noted. Musculoskeletal: No cyanosis. Patient is able to move all extremities. Strength is 5 out of 5 in the upper and lower extremities. Skin: No rashes, warm dry and intact. Neurologic: No obvious focal neurological deficits seen. Psychiatric: Alert and oriented x3 with a euthymic affect. Results & Data Results & Data Vital Signs (Past 12 Hours) Vital Signs Temp Pulse Pulse Resp BP Pulse Ox O2 Del Method 03/07/23 10:48 36.5 C 75 18 132/79 93 Room Air 03/07/23 09:00 67 03/07/23 08:06 36.3 C L 96 H 18 128/51 L 94 Room Air 03/07/23 03:27 37.0 C 62 14 135/77 95 Room Air PG Care Time/CCT Total # of Minutes Spent Total Time Spent with Patient: Total time spent is greater than 50% in coordination of care (as documented) at patient's floor/unit and/or counseling patient: Coding Level of Care Code 02400 INT INP/OBS CARE 3/75MIN Diagnoses Pulmonary embolism and infarction I26.99 Chest pain R07.9 Chest pain type: unspecified Elevated troponin I level R79.89 Morbid obesity E66.01
--- NOTE | 2023-03-07 16:11 | Ultrasound Report ---
BILATERAL LOWER EXTREMITY VENOUS DOPPLER CLINICAL HISTORY: Leg swelling. COMPARISON STUDY: Left lower extremity venous Doppler ultrasound December 15, 2019. TECHNIQUE: Sonography of the deep venous system of the bilateral lower extremities was performed. Co mpression and augmentation were evaluated. FINDINGS: There is deep venous thrombus within one of 2 paired right peroneal veins. There is also s uperficial thrombus within the right greater saphenous vein which extends from the groin to lower thi gh. This extends for over 7 cm. Extensive deep venous thrombus within the left lower extremity is not ed, including thrombus within the left common femoral, superficial femoral and popliteal veins as wel l as the left calf vessels. IMPRESSION: 1. Extensive deep venous thrombus within the left lower extremity, as described above. 2. Superficial thrombus within one of 2 paired right peroneal veins. 3. Superficial thrombus within the right greater saphenous vein, as described above. ACT 112: Negative or not required by law. Electronically signed by: Ramiro Key M.D. 03/07/2023 4:08 PM
--- NOTE | 2023-03-07 18:58 | Hospitalist Progress Note ---
Date of Service March 07, 2023 Assessment & Plan (1) Pulmonary embolism and infarction: Plan: 72-year-old male with history of hypertension presenting with shortness of breath x 1 week EXTENSIVE BILATERAL PULMONARY EMBOLI Appears to be unprovoked No family history as per patient Hemodynamically stable On room air Not in respiratory distress CT scan noted Echocardiogram ordered Heparin drip standard dose with bolus ordered Will order hypercoagulable workup with a.m. labs Pulmonary service consult 03/07 Remains hemodynamically stable O2 sats more than 90% on room air Echocardiogram: Mildly reduced right ventricular function Pulmonary service consulted Doppler ultrasound lower extremities ordered Continue heparin drip HYPERTENSION Continue losartan Hold HCTZ in light of IV contrast use for CT chest angio plan of care discussed with patient and his at the bedside in detail and at length all questions answered they are understanding, agreeable, comfortable with the plan of care Admission and Anticipated Discharge Date Admission Date: March 06, 2023 Subjective Follow-up for extensive bilateral PEs, etc. Seen resting in bed, comfortable, in good spirits Patient's at the bedside visiting States he feels improved today compared to yesterday No chest pain, no shortness of breath No dizziness, palpitations No bleeding No other symptoms Review of Systems Review of Systems: all noted and negative except for above Physical Exam Physical Exam: General- oriented x 3, not in distress, speaks in sentences with no effort or accessory muscle use Eyes- anicteric Neck- no JVD Lungs- clear breath sounds bilaterally, no crackles Heart- normal rate, regular rhythm; no murmurs Abdomen- normal bowel sounds, nondistended, soft, nontender Extremities- no pretibial edema, no calf tenderness Neuro- alert, oriented x 3; no gross focal neurologic deficits Skin- warm & dry Results & Data Results & Data Vital Signs (Past 12 Hours) Vital Signs Temp Pulse Pulse Resp BP Pulse Ox O2 Del Method 03/07/23 17:15 36.8 C 77 19 127/75 97 Room Air 03/07/23 15:41 73 03/07/23 10:48 36.5 C 75 18 132/79 93 Room Air 03/07/23 09:00 67 03/07/23 08:06 36.3 C L 96 H 18 128/51 L 94 Room Air all noted and reviewed including below
[2023-03-08] MEDS: HEPARIN SODIUM/DEXTROSE 25,000 UNITS/500 ML BAG IV SCH ×2 (04:54→17:43)
[2023-03-08 05:41] LABS: Basophils # (auto) 0.05 K/uL (0.00-0.20); Basophils % (auto) 0.6 %; Eosinophils # (auto) 0.23 K/uL (0.00-0.50); Eosinophils % (auto) 2.8 %; Hematocrit (blood only) 39.3 % (42.0-52.0); Hemoglobin 13.5 g/dl (14.0-18.0); Immature Granulocytes # (auto) 0.04 K/uL (0.01-0.20); Immature Granulocytes % (auto) 0.5 %; Lymphocytes # (auto) 2.84 K/uL (1.20-3.40); Lymphocytes % (auto) 34.4 %; Mean Corpuscular Hemoglobin 33.3 pg (25.0-34.0); Mean Corpuscular Hgb Conc 34.4 g/dL (32.0-36.0); Mean Platelet Volume 10.3 fL (9.4-12.4); Monocytes # (auto) 1.25 K/uL (0.11-0.59); Monocytes % (auto) 15.2 %; Neutrophils # (auto) 3.84 K/uL (1.40-6.50); Neutrophils % (auto) 46.5 %; Platelet Count 172 K/uL (130-400); RDW Standard Deviation 50.3 fL (36.4-46.3); Red Blood Count 4.05 M/uL (4.70-6.10); White Blood Count 8.25 K/ul (4.8-10.8)
[2023-03-08 05:56] LABS: Albumin Level 3.1 gm/dl (3.4-5.0); BUN Creatinine Ratio 11.1 (10-20); Bilirubin Direct 0.3 mg/dl (0-0.2); Bilirubin,Total 1.5 mg/dl (0.2-1.0); Calcium 7.9 mg/dl (8.6-10.3); Creatinine Clr Calc Pharmacy 104.7 ml/min; Est GFR (African American) 88.4 ml/min; Est GFR (Non-African American) 76.3 ml/min; Potassium 3.4 mmol/L (3.5-5.1); Total Protein 5.7 gm/dl (6.0-8.3)
[2023-03-08 06:10] LABS: ANTI-Xa, UFH(UnfractionatedHep 0.69 IU/ml (0.3-0.7)
[2023-03-08] MEDS: LOSARTAN POTASSIUM 50 MG TAB PO SCH (08:29)
--- NOTE | 2023-03-08 09:31 | Hospitalist Progress Note ---
Date of Service March 08, 2023 Assessment & Plan (1) Pulmonary embolism and infarction: Plan: 72-year-old male with history of hypertension presenting with shortness of breath x 1 week EXTENSIVE BILATERAL PULMONARY EMBOLI Bilateral PE due to right peroneal, left common femoral, popliteal and distal calf vessels Appears to be unprovoked No family history as per patient Hemodynamically stable On room air Not in respiratory distress CT scan noted Echocardiogram ordered Heparin drip standard dose with bolus ordered Will order hypercoagulable workup with a.m. labs Pulmonary service consult 03/08 Remains hemodynamically stable O2 sats more than 90% on room air Chest pain improving Trop 38 -> 35 Echocardiogram: Mildly reduced right ventricular function Pulmonary service consulted Doppler ultrasound lower extremities:1. Extensive deep venous thrombus within the left lower extremity, as described above. 2. Superficial thrombus within one of 2 paired right peroneal veins. 3. Superficial thrombus within the right greater saphenous vein, as described above. Pulmonary service recommending transfer patient for possible IR evaluation, EKOS procedure for her left lower extremity DVTs, As a recurrence of PE may be life-threatening for patient Discussed with [facility], accepted for transfer by Dr. Wong Continue heparin drip HYPERTENSION Continue losartan Hold HCTZ in light of IV contrast use for CT chest angio plan of care discussed with patient and his at the bedside in detail and at length all questions answered they are understanding, agreeable, comfortable with the plan of care Admission and Anticipated Discharge Date Admission Date: March 06, 2023 Subjective Follow-up for acute PE, DVT, etc. Seen resting in bed, in good spirits Comfortable States he feels he continues to improve No chest pain, shortness of breath No bleeding No other symptom Review of Systems Review of Systems: all noted and negative except for above Physical Exam Physical Exam: General- oriented x 3, not in distress, speaks in sentences with no effort or accessory muscle use Eyes- anicteric Neck- no JVD Lungs- clear breath sounds bilaterally, no rales/wheezes Heart- normal rate, regular rhythm; no murmurs Abdomen- normal bowel sounds, nondistended, soft, nontender Extremities- no pretibial edema, no calf tenderness Neuro- alert, oriented x 3; no gross focal neurologic deficits Skin- warm & dry Results & Data Results & Data Vital Signs (Past 12 Hours) Vital Signs Temp Pulse Pulse Resp BP Pulse Ox O2 Del Method 01/02/24 07:55 36.7 C 80 20 148/75 H 96 Room Air 03/08/23 03:02 36.8 C 84 20 139/89 94 Room Air 03/07/23 22:54 59 L all noted and reviewed including below
--- NOTE | 2023-03-08 18:17 | Discharge Summary ---
Discharge Summary Date of Service March 08, 2023 Notes For Next Care Provider Medication Changes From Visit Heparin drip Admission HPI Per Admitting Provider 72-year-old male with history of hypertension presenting with shortness of breath x 1 week Patient started to have shortness of breath a week ago which persisted and progressed Then became associated with right-sided chest pain radiating to the back. No history of long drives, flights, surgery within the past 3 months. Patient has been relatively active. No cough, fevers or chills, sputum production, hemoptysis, etc. Admission Exam Per Admitting Provider General- oriented x 3, not in distress, speaks in sentences with no effort or ac cessory muscle use Eyes- anicteric Neck- no JVD Lungs- clear breath sounds bilaterally, no rales/wheezes Heart- normal rate, regular rhythm; no murmurs Abdomen- normal bowel sounds, nondistended, soft, nontender Extremities- no pretibial edema, no calf tenderness Neuro- alert, oriented x 3; no gross focal neurologic deficits Skin- warm & dry Principal Dx & Hospital Course #1 = Principal Diagnosis (1) Pulmonary embolism and infarction: 72-year-old male with history of hypertension presenting with shortness of breath x 1 week EXTENSIVE BILATERAL PULMONARY EMBOLI Bilateral PE due to right peroneal, left common femoral, popliteal and distal calf vessels Appears to be unprovoked No family history as per patient Hemodynamically stable On room air Not in respiratory distress CT scan noted Echocardiogram ordered Heparin drip standard dose with bolus ordered Will order hypercoagulable workup with a.m. labs Pulmonary service consult 1/2 Remains hemodynamically stable O2 sats more than 90% on room air Chest pain improving Trop 38 -> 35 Echocardiogram: Mildly reduced right ventricular function Pulmonary service consulted Doppler ultrasound lower extremities:1. Extensive deep venous thrombus within the left lower extremity, as described above. 2. Superficial thrombus within one of 2 paired right peroneal veins. 3. Superficial thrombus within the right greater saphenous vein, as described above. Pulmonary service recommending transfer patient for possible IR evaluation, EKOS procedure for her left lower extremity DVTs, As a recurrence of PE may be life-threatening for patient Discussed with [facility], accepted for transfer by Dr. Wong Continue heparin drip HYPERTENSION Continue losartan Hold HCTZ in light of IV contrast use for CT chest angio CORONARY ARTERY CALCIFICATIONS Follow-up with cardiology as an outpatient plan of care discussed with patient and his at the bedside in detail and at length all questions answered they are understanding, agreeable, comfortable with the plan of care Discharge Exam General- oriented x 3, not in distress, speaks in sentences with no effort or accessory muscle use Eyes- anicteric Neck- no JVD Lungs- clear breath sounds bilaterally, no rales/wheezes Heart- normal rate, regular rhythm; no murmurs Abdomen- normal bowel sounds, nondistended, soft, nontender Extremities- no pretibial edema, no calf tenderness Neuro- alert, oriented x 3; no gross focal neurologic deficits Skin- warm & dry Updated Medication List Medication Instructions Recorded Confirmed Type aspirin 81 mg tablet 81 mg PO DAILY 03/06/23 03/06/23 History gabapentin 100 mg capsule 100 mg PO TID 03/06/23 03/06/23 History hydrochlorothiazide 12.5 mg tablet 12.5 mg PO QAM 03/06/23 03/06/23 History losartan 50 mg tablet 50 mg PO QAM 03/06/23 03/06/23 History Hospital Stay Data Consultations 03/06/23 18:01 ED Decision to Admit Stat 03/06/23 20:36 Consult Pulmonology Routine 03/07/23 20:32 Burn CD for patient Routine Diagnostic Imagining Performed Laboratory Results WBC 8.25 K/ul (4.8-10.8) 03/08/23 05:17 RBC 4.05 M/uL (4.70-6.10) L 03/08/23 05:17 Hgb 13.5 g/dl (14.0-18.0) L 03/08/23 05:17 Hct 39.3 % (42.0-52.0) L 03/08/23 05:17 MCV 97.0 fL (80.0-100.0) 03/08/23 05:17 MCH 33.3 pg (25.0-34.0) 03/08/23 05:17 MCHC 34.4 g/dL (32.0-36.0) 03/08/23 05:17 RDW Std Deviation 50.3 fL (36.4-46.3) H 03/08/23 05:17 RDW Coeff of Arias 14.0 % (11.5-14.5) 03/08/23 05:17 Plt Count 172 K/uL (130-400) 03/08/23 05:17 MPV 10.3 fL (9.4-12.4) 03/08/23 05:17 Immature Gran % (Auto) 0.5 % 03/08/23 05:17 Neut % (Auto) 46.5 % 03/08/23 05:17 Lymph % (Auto) 34.4 % 03/08/23 05:17 [place] % (Auto) 15.2 % 03/08/23 05:17 Eos % (Auto) 2.8 % 03/08/23 05:17 Baso % (Auto) 0.6 % 03/08/23 05:17 Neut # (Auto) 3.84 K/uL (1.40-6.50) 03/08/23 05:17 Lymph # (Auto) 2.84 K/uL (1.20-3.40) 03/08/23 05:17 [place] # (Auto) 1.25 K/uL (0.11-0.59) H 03/08/23 05:17 Eos # (Auto) 0.23 K/uL (0.00-0.50) 03/08/23 05:17 Baso # (Auto) 0.05 K/uL (0.00-0.20) 03/08/23 05:17 Immature Gran # (Auto) 0.04 K/uL (0.01-0.20) 03/08/23 05:17 PT 11.6 Seconds (9.0-12.0) 03/06/23 14:54 INR 1.1 (0.9-1.1) 03/06/23 14:54 APTT 27 Seconds (21-31) 03/06/23 14:54 PTT Ratio 1.0 03/06/23 14:54 D-Dimer 8950 ug/L FEU (0-500) H* 03/06/23 14:54 Heparin Anti-Xa, Unfract 0.69 IU/ml (0.3-0.7) 03/08/23 05:17 Sodium 139 mmol/L (136-145) 03/08/23 05:17 Potassium 3.4 mmol/L (3.5-5.1) L 03/08/23 05:17 Chloride 106 mmol/L (98-107) 03/08/23 05:17 Carbon Dioxide 26 mmol/L (21-32) 03/08/23 05:17 Anion Gap 7 (3-11) 03/08/23 05:17 BUN 11 mg/dl (6-23) 03/08/23 05:17 Creatinine 0.99 mg/dl (0.6-1.4) 03/08/23 05:17 Est Cr Clr Drug Dosing 104.7 ml/min 03/08/23 05:17 Est GFR ( Amer) 88.4 ml/min 03/08/23 05:17 Est GFR (Non-Af Amer) 76.3 ml/min 03/08/23 05:17 BUN/Creatinine Ratio 11.1 (10-20) 03/08/23 05:17 Glucose 98 mg/dl (70-99(Fasting)) 03/08/23 05:17 Calcium 7.9 mg/dl (8.6-10.3) L 03/08/23 05:17 Total Bilirubin 1.5 mg/dl (0.2-1.0) H 03/08/23 05:17 Direct Bilirubin 0.3 mg/dl (0-0.2) H 03/08/23 05:17 AST 16 U/L (13-39) 03/08/23 05:17 ALT 19 U/L (7-52) 03/08/23 05:17 Alkaline Phosphatase 47 U/L (34-104) 03/08/23 05:17 Troponin I High Sens 35.2 pg/ml (0-20) H 03/06/23 17:54 Total Protein 5.7 gm/dl (6.0-8.3) L 03/08/23 05:17 Albumin 3.1 gm/dl (3.4-5.0) L 03/08/23 05:17 Globulin 3.3 gm/dl (2.5-4.0) 03/06/23 14:54 Albumin/Globulin Ratio 1.2 (0.9-2) 03/06/23 14:54 Adenovirus (PCR) Not Detected (NotDetected) 03/06/23 15:55 B. pertussis DNA (PCR) Not Detected (NotDetected) 03/06/23 15:55 B.parapertussis DNA PCR Not Detected (NotDetected) 03/06/23 15:55 C. pneumoniae DNA (PCR) Not Detected (NotDetected) 03/06/23 15:55 Coronavirus OC43 (PCR) Not Detected (NotDetected) 03/06/23 15:55 Coronavirus HKU1 (PCR) Not Detected (NotDetected) 03/06/23 15:55 Coronavirus 229E (PCR) Not Detected (NotDetected) 03/06/23 15:55 SARS-CoV-2 (PCR) Not Detected (NotDetected) 03/06/23 15:55 Coronavirus NL63 (PCR) Not Detected (NotDetected) 03/06/23 15:55 Human Metapneumovir PCR Not Detected (NotDetected) 03/06/23 15:55 Influenza Type A (PCR) Not Detected (NotDetected) 03/06/23 15:55 Influenza Type B (PCR) Not Detected (NotDetected) 03/06/23 15:55 M. pneumoniae (PCR) Not Detected (NotDetected) 03/06/23 15:55 Parainfluenza 1 (PCR) Not Detected (NotDetected) 03/06/23 15:55 Parainfluenza 2 (PCR) Not Detected (NotDetected) 03/06/23 15:55 Parainfluenza 3 (PCR) Not Detected (NotDetected) 03/06/23 15:55 Parainfluenza 4 (PCR) Not Detected (NotDetected) 03/06/23 15:55 RSV (PCR) Not Detected (NotDetected) 03/06/23 15:55 Entero/Rhino (PCR) Not Detected (NotDetected) 03/06/23 15:55 Impressions Chest X-Ray 03/06/23 13:48 SINGLE VIEW CHEST CLINICAL HISTORY: Atypical chest pain. FINDINGS: An AP, portable, upright chest radiograph is obtained. No prior studies are available for comparison at the time of dictation. The heart is enlarged. The pulmonary vasculature is noncongested. Nonspecific interstitial thickening is likely chronic. There is mild bibasilar scarring/atelectasis. The lungs and pleural spaces are otherwise clear. No pneumothorax is seen. The skeletal structures are osteopenic. The bony thorax is grossly intact. IMPRESSION: Cardiomegaly with no acute cardiopulmonary abnormality identified. ACT 112: Negative or not required by law. Electronically signed by: Bandar Rasheed M.D. 03/06/2023 2:05 PM Chest CTA 03/06/23 16:10 CT ANGIOGRAM OF THE CHEST CLINICAL HISTORY: Atypical chest pain. Dyspnea. COMPARISON STUDY: Chest x-ray dated 03/06/2023. TECHNIQUE: Following the IV administration of 117 cc of Optiray 320, CT angiogram of the chest was performed from the upper abdomen to the thoracic inlet utilizing the pulmonary embolus protocol. Images are reviewed in the axial, sagittal, and coronal planes. 3-D MIPS images are created and assessed. IV contrast was administered without complication. A dose lowering technique was utilized adhering to the principles of ALARA. CT DOSE: 1000.76 mGy.cm FINDINGS: Thyroid: Imaged portions of the thyroid gland are normal in size and attenuation. Thoracic aorta: There is atherosclerotic calcification of the thoracic aorta, which is normal in caliber and demonstrates standard 3-vessel arch anatomy. No dissection is seen. Pulmonary vasculature: The pulmonary trunk is normal in caliber. There is thrombus within the distal right main pulmonary artery. This extends into the right upper, middle, and lower lobe pulmonary arteries and segmental and subsegmental branches. There is also thrombus within the distal left main pulmonary artery. This extends into the left upper and lower lobe pulmonary arteries and the segmental and subsegmental branches. There is also a embolus within the lingular pulmonary artery. Heart: The heart is top normal in size and without pericardial effusion. The c oronary arteries are densely calcified. Lungs and pleural spaces: Subpleural groundglass consolidation is seen at the left apex. There is scarring/atelectasis present at both lung bases. The trachea and central airways are clear. No pleural effusion is identified. Scattered subpleural nodules measuring up to 4 mm. [employer] nodules are seen in the left lower lobe on image #84, the right lower lobe on image #61, and the right middle lobe on images #88 and #94. These are of low suspicion. Mediastinum: There is no mediastinal lymphadenopathy. Nivia: Clear. Axillae: There is no axillary lymphadenopathy. Upper abdomen: Partially visualized upper abdominal viscera is within normal limits. Skeletal structures: The skeletal structures are osteopenic. Degenerative change is noted in the shoulders and spine. No lytic or blastic bony lesions are seen. IMPRESSION: 1. Extensive bilateral pulmonary embolus as above. 2. Subpleural groundglass consolidation at the left apex likely represents a pulmonary infarct. Correlate clinically for evidence of a superimposed infectious/inflammatory pneumonitis. 3. No pleural effusion is seen. 4. Advanced coronary artery atherosclerosis. 5. Additional findings as above. ACT 112: Negative or not required by law. Electronically signed by: Bandar Rasheed M.D. 03/06/2023 5:55 PM Venous Doppler Study 03/07/23 13:18 BILATERAL LOWER EXTREMITY VENOUS DOPPLER CLINICAL HISTORY: Leg swelling. COMPARISON STUDY: Left lower extremity venous Doppler ultrasound December 15, 2019. TECHNIQUE: Sonography of the deep venous system of the bilateral lower extremities was performed. Compression and augmentation were evaluated. FINDINGS: There is deep venous thrombus within one of 2 paired right peroneal veins. There is also superficial thrombus within the right greater saphenous vein which extends from the groin to lower thigh. This extends for over 7 cm. Extensive deep venous thrombus within the left lower extremity is noted, including thrombus within the left common femoral, superficial femoral and popliteal veins as well as the left calf vessels. IMPRESSION: 1. Extensive deep venous thrombus within the left lower extremity, as described above. 2. Superficial thrombus within one of 2 paired right peroneal veins. 3. Superficial thrombus within the right greater saphenous vein, as described above. ACT 112: Negative or not required by law. Electronically signed by: Ramiro Key M.D. 03/07/2023 4:08 PM Pending Results Patient Have Any Pending Studies at Discharge: Yes Discharge Instructions Given to Patient (Per Discharging Provider) Continue IV heparin drip Please refer to hospital discharge summary. Total Time Total Time Spent Total Time Spent (In Minutes): >30 minutes
== END 2023-03-08 21:00 | disposition short-term general hospital (02) | DRG 299 ==
LOC: ED 13:39 → EDINP 18:11 → 1E 20:36 → 2E 03-07 05:30

== ENCOUNTER 2025-02-13 14:21 | Inpatient (IN) ==
--- NOTE | 2025-02-13 14:44 | Emergency Department Note ---
History of Present Illness General Chief complaint: Rectal Pain Stated complaint: RECTAL PAIN Time Seen by Provider: 02/13/25 14:41 History of Present Illness Maximum Pain Intensity: 9 This is a 74-year-old male that presents to the emergency department via private vehicle with complaints of "rectal pain". The patient notes that he is currently receiving radiation for tongue cancer. He has had rectal pain for the past 2 to 3 days. He notes decreased oral intake. No bowel movement over the past few days. He notes minimal oral intake over the past few days as well. No fever. Current pain 11/14. On chemo as well. Receiving radiation daily. Proceeding the rectal pain there was some diarrhea but that resolved about 3 days ago now with no bowel movement. Patient notes he cannot urinate. No abdominal pain. No blood from the rectum. Mild nausea. No vomiting. No chest pain or shortness of breath. Home Medications Medication Instructions Recorded Confirmed Type apixaban 5 mg tablet (Eliquis) 5 mg PO BID 12/12/24 02/13/25 History acetaminophen 325 mg tablet 650 mg PO QID PRN Pain 01/21/25 02/13/25 History (Tylenol) prochlorperazine maleate 10 mg 10 mg PO Q6H PRN Nausea And 01/21/25 02/13/25 History tablet (Compazine) Vomiting Magic Mouthwash 300 mL mouthwash 10 ml mucous membrane ACHS Sore 01/28/25 02/13/25 Rx throat #300 mL nystatin 100,000 unit/mL oral 5 ml PO QID 10 days #200 mL 02/04/25 02/13/25 Rx suspension losartan 50 mg-hydrochlorothiazide 1 tab PO QAM 02/13/25 02/13/25 History 12.5 mg tablet olanzapine 2.5 mg tablet See Rx Instructions .Route .COMPLEX 02/13/25 02/13/25 History ondansetron 8 mg disintegrating 8 mg PO Q8H PRN Nausea And Vomiting 02/13/25 02/13/25 History tablet Allergies Allergy/AdvReac Type Severity Reaction Status Date / Time amoxicillin Allergy Hives Verified 02/13/25 19:12 cefazolin Allergy Hives Verified 02/13/25 19:12 cephalexin Allergy . Verified 02/13/25 19:12 gabapentin Allergy Hallucinati Verified 02/13/25 19:12 ng thiopental [From Pentothal] Allergy Unknown Verified 02/13/25 19:12 Past Med/Surg History Problem List (Updated 02/14/25 @ 11:49 by Seb Tyson PA-C) Pain, rectal (Acute) Transaminitis Hypocalcemia Hyponatremia Constipation Proctocolitis (Acute) SIRISHA (acute kidney injury) (Acute) Lymphadenopathy Generalized osteoarthritis Factor V Leiden Malignant neoplasm of base of tongue (Chronic 11/26/24) Morbid obesity Elevated troponin I level (Acute) Chest pain (Acute) Hypertension Medical History DJD (degenerative joint disease) DVT (deep venous thrombosis) Pulmonary embolism and infarction Surgical History Hx of LASIK History of cataract surgery History of knee replacement right and left S/P hip replacement right and left Family History Father Cancer Lung cancer Mother Cancer Breast cancer Social History Smoking Status: Former smoker Tobacco Type: Smokeless Tobacco (Dip or Chew) Hx Alcohol Use: No Hx Substance Use: No Preferred Language: Fijian Communication Ability: Effective Port Traffic Manager Required: No Beliefs That Will Affect Care: None Current Living Situation: Spouse current occupational status: retired 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 Feels Safe at Home: Yes Safety Concerns: Feels Safe At This Time Diet: regular Assistive Devices: Walker Review of Systems A total of 10 systems reviewed and were otherwise negative Physical Exam Vital Signs Vital Signs - 24 hr 02/13/25 14:35 02/13/25 15:51 02/13/25 17:00 Temperature 36.3 C L Temperature Source Temporal Artery Scan Pulse Rate 96 H Pulse Rate [Finger] 67 77 Respiratory Rate 14 20 Respiratory Effort / Characteristics Non-Labored Spontaneous Respiratory Depth Normal Blood Pressure [Right Arm] 140/73 140/73 Blood Pressure Mean [Right Arm] 95 95 Blood Pressure Position [Right Arm] Lying Pulse Oximetry 97 97 99 Oxygen Delivery Method Room Air Room Air Room Air Sepsis New/Unexplained Change in Mental Status No Sepsis Action Taken by Nursing No Action Required VITAL SIGNS - Vital signs and nursing notes were reviewed. Stable and afebrile. GENERAL -74-year-old male appearing his stated age who is in no acute distress. Communicates well with provider and answers questions appropriately. SKIN - Without rashes. There is no meningeal or petechial rash. HEAD - NC/AT. EYES - PERRL with EOMI bilaterally. Sclera anicteric. EARS - No deformities of external structures noted on gross examination bilaterally. NOSE - Midline and without cyanosis. MOUTH/OROPHARYNX - Without perioral cyanosis. NECK - Neck with FROM. No nuchal rigidity. LUNGS - CTA CARDIAC - RRR ABDOMEN - Abdominal contour normal without pulsations or visible masses. BS normoactive all four quadrants. No tenderness, palpable masses, hepatosplenomegaly, or ascites noted. EXTREMITIES - No clubbing or peripheral cyanosis. +5/5 strength noted in UE/LE bilaterally. NEUROLOGIC - Cranial nerves II through XII grossly intact. PSYCH -alert, oriented and pleasant on exam Course Administered Medications Acetaminophen (Acetaminophen 500 Mg Tab) 1,000 mg PO Q8H PRN PRN Reason: Mild-Mod Pain (Scale 1-6) Stop: 03/16/25 03:36 Last Admin: 02/14/25 03:50 Dose: 1,000 mg Documented By: KIERA Apixaban (Apixaban 5 Mg Tablet) 5 mg PO BID [facility] Stop: 03/16/25 08:59 Last Admin: 02/14/25 08:29 Dose: 5 mg Documented By: mansoor Calcium Carbonate (Calcium Carbonate 1,250 Mg/5 Ml Udc) 1,250 mg PO BID [facility] Stop: 03/16/25 08:59 Last Admin: 02/14/25 08:24 Dose: 1,250 mg Documented By: mansoor Metronidazole (Flagyl) 500 mg in 100 mls @ 100 mls/hr IV Q8H DENIA; Protocol Stop: 02/24/25 05:59 Last Infusion: 02/14/25 07:21 Dose: Infused Documented By: masnoor Admin: 02/14/25 06:21 Dose: 100 mls/hr Documented By: EVA Ciprofloxacin (Cipro / D5w) 400 mg in 200 mls @ 100 mls/hr IV Q12H DENIA; Protocol Stop: 02/24/25 08:59 Last Infusion: 02/14/25 10:24 Dose: Infused Documented By: mansoor Admin: 02/14/25 08:24 Dose: 100 mls/hr Documented By: mansoor Multi-Ingredient Mouthwash/Gargle (First - Mouthwash Blm 119 Ml) 10 ml PO ACHS DENIA Stop: 03/15/25 22:59 Last Admin: 02/14/25 11:19 Dose: 10 ml Documented By: mansoor Admin: 02/14/25 07:32 Dose: 10 ml Documented By: mansoor Admin: 02/13/25 23:56 Dose: 10 ml Documented By: EVA Senna/Docusate Sodium (Docusate Sodium/Senna 50/8.6mg Tab) 1 tab PO QAM DENIA Stop: 03/16/25 11:14 Last Admin: 02/14/25 11:21 Dose: 1 tab Documented By: mansoor Discontinued Medications Apixaban (Apixaban 5 Mg Tablet) 5 mg PO ONE STA Stop: 02/13/25 20:58 Last Admin: 02/13/25 21:34 Dose: 5 mg Documented By: KATHRINE Bisacodyl (Bisacodyl 5 Mg Tabec) 5 mg PO NOW ONE Stop: 02/14/25 11:05 Last Admin: 02/14/25 11:21 Dose: 5 mg Documented By: mansoor Sodium Chloride (Nss) 1,000 mls @ 125 mls/hr IV .Q8H ONE Stop: 02/14/25 01:50 Last Infusion: 02/13/25 22:05 Dose: Infused Documented By: Admin: 02/13/25 18:25 Dose: 125 mls/hr Documented By: sade Lactated Ringer's (Lr) 1,000 mls @ 999 mls/hr IV .Q1H1M ONE Stop: 02/13/25 21:28 Last Infusion: 02/13/25 22:48 Dose: Infused Documented By: Admin: 02/13/25 21:51 Dose: 999 mls/hr Documented By: KATHRINE Lactated Ringer's (Lr) 1,000 mls @ 125 mls/hr IV .Q8H DENIA Stop: 02/14/25 04:29 Last Infusion: 02/14/25 06:13 Dose: Infused Documented By: Admin: 02/13/25 23:27 Dose: 125 mls/hr Documented By: EVA Metronidazole (Flagyl) 500 mg in 100 mls @ 100 mls/hr IV ONE STA; Protocol Stop: 02/13/25 21:57 Last Infusion: 02/13/25 22:52 Dose: Infused Documented By: Admin: 02/13/25 21:49 Dose: 100 mls/hr Documented By: KATHRINE Ciprofloxacin (Cipro / D5w) 400 mg in 200 mls @ 100 mls/hr IV ONE STA; Protocol Stop: 02/13/25 22:57 Last Infusion: 02/14/25 01:31 Dose: Infused Documented By: Admin: 02/13/25 23:26 Dose: 100 mls/hr Documented By: EVA Sodium Phosphate 21 mmol/ (Sodium Chloride) 507 mls @ 88 mls/hr IV ONE ONE Stop: 02/14/25 05:00 Last Infusion: 02/14/25 06:13 Dose: Infused Documented By: Admin: 02/13/25 23:55 Dose: 88 mls/hr Documented By: EVA Miscellaneous (Patient's Height &/Or Weight Needed) 1 each N/A Q2H STA Stop: 02/13/25 20:37 Last Admin: 02/13/25 21:48 Dose: 1 each Documented By: KATHRINE Polyethylene Glycol (Polyethylene (Miralax) 17 Gm Pack) 17 gm PO DAILY DENIA Stop: 03/15/25 20:34 Last Admin: 02/14/25 08:28 Dose: 17 gm Documented By: mansoor Admin: 02/13/25 21:35 Dose: 17 gm Documented By: KATHRINE Potassium Chloride (Potassium Chloride Crtab 20 Meq Tabcr) 40 meq PO NOW STA Stop: 02/14/25 08:33 Last Admin: 02/14/25 08:48 Dose: 40 meq Documented By: mansoor Sodium Phosphate (Sodium Phosphate 3 Mmol/1 Ml 5 Ml Vial) 21 mmol IV ONCE ONE Stop: 02/13/25 22:47 Last Admin: 02/14/25 00:30 Dose: Not Given Documented By: EVA Medical Decision Making Laboratory Data 02/13/25 15:40 02/14/25 07:02 Lab Results 02/13/25 02/13/25 Range/Units 15:40 16:12 WBC 4.45 L (4.8-10.8) K/ul RBC 4.19 L (4.70-6.10) M/uL Hgb 14.1 (14.0-18.0) g/dL Hct 40.0 L (42.0-52.0) % MCV 95.5 (80.0-100.0) fL MCH 33.7 (25.0-34.0) pg MCHC 35.3 (32.0-36.0) g/dL RDW Std Deviation 49.8 H (36.4-46.3) fL RDW Coeff of Arias 14.2 (11.5-14.5) % Plt Count 202 (130-400) K/uL MPV 8.9 L (9.4-12.4) fL Immature Gran % (Auto) 0.4 % Neut % (Auto) 59.3 % Lymph % (Auto) 21.1 % [place] % (Auto) 18.4 % Eos % (Auto) 0.4 % Baso % (Auto) 0.4 % Neut # (Auto) 2.63 (1.40-6.50) K/uL Lymph # (Auto) 0.94 L (1.20-3.40) K/uL [place] # (Auto) 0.82 H (0.11-0.59) K/uL Eos # (Auto) 0.02 (0.00-0.50) K/uL Baso # (Auto) 0.02 (0.00-0.20) K/uL Immature Gran # (Auto) 0.02 (0.01-0.20) K/uL Sodium 133 L (136-145) mmol/L Potassium 4.0 (3.5-5.1) mmol/L Chloride 92 L (98-107) mmol/L Carbon Dioxide 33 H (21-32) mmol/L Anion Gap 8 (3-11) BUN 37 H (6-23) mg/dl Creatinine 2.36 H (0.6-1.4) mg/dl Est Cr Clr Drug Dosing Not Reportable eGFR 28.36 BUN/Creatinine Ratio 15.7 (10-20) Glucose 109 H (70-99(Fasting)) mg/dl Osmolality 286 (280-300) mOsm/kg Calcium 8.4 L (8.6-10.3) mg/dl Phosphorus 1.9 L (2.5-4.9) mg/dl Total Bilirubin 1.0 (0.2-1.0) mg/dl AST 68 H (13-39) U/L ALT 131 H (7-52) U/L Alkaline Phosphatase 55 (34-104) U/L Total Protein 6.3 (6.0-8.3) gm/dl Albumin 3.5 (3.4-5.0) gm/dl Globulin 2.8 (2.5-4.0) gm/dl Albumin/Globulin Ratio 1.3 (0.9-2) Urine Color Yellow Urine Appearance Clear (Clear) Urine pH 7.5 (4.5-7.5) Ur Specific [place] 1.015 (1.000-1.030) Urine Protein 1+ H (Negative) Urine Glucose (UA) Negative (Negative) Urine Ketones Trace H (Negative) Urine Blood Negative (Negative) Urine Nitrite Negative (Negative) Urine Bilirubin Negative (Negative) Urine Urobilinogen Negative (Negative) Ur Leukocyte Esterase Negative (Negative) Urine WBC (Auto) 0-5 (0-5) /hpf Urine RBC (Auto) 3-5 H (0-2) /hpf U Hyaline Cast (Auto) 0-2 (0-2) /lpf U Epithel Cells (Auto) 0-2 (0-2) /hpf Urine Bacteria (Auto) None Seen (None Seen) Urine Osmolality 492 L (500-800) mOsm/kg Ur Random Sodium 72 mmol/L Urine Comment Imaging Data Radiologist's Impression: CT ABDOMEN and PELVIS without INTRAVENOUS CONTRAST HISTORY: Abdominal pain TECHNIQUE: CT abdomen and pelvis without contrast. IV CONTRAST: None ENTERIC CONTRAST: None. COMPARISON: None FINDINGS: LOWER CHEST: Left basilar atelectasis versus scarring. Coronary valvular calcifications of the heart. Multiple pulmonary nodules in the right middle lobe measuring 3 mm. LIVER: No focal lesion identified in this noncontrast study. GALLBLADDER/BILIARY: Unremarkable gallbladder. No abnormal biliary dilatation. SPLEEN: Unremarkable. PANCREAS: Unremarkable. ADRENALS: Unremarkable. KIDNEYS: Unremarkable. No stones or hydronephrosis identified. PERITONEUM/RETROPERITONEUM. No lymphadenopathy by size criteria. No aortic aneurysm. GASTROINTESTINAL: No obstruction. Normal appendix. Colonic diverticulosis without evidence of diverticulitis. There is a long segment wall thickening of the rectum and the anus mildly impacted by the fecal matter REPRODUCTIVE: Poorly evaluated due to streak artifact from hip arthroplasty URINARY BLADDER: Inflammatory changes wall thickening. BONES: No acute findings. Bilateral hip arthroplasties. IMPRESSION: Long-segment wall thickening of the rectum and the anus may be due to proctocolitis/stercoral proctocolitis with fecal matter resulting in mild impaction. Inflammatory changes of the urinary bladder may be due to cystitis. Electronically signed by Hira Thomson 02-13-2025 7:53 PM MDM Narrative Patient was seen and evaluated as above in room D02b. Review was performed of triage nursing notes and vital signs. After obtaining a thorough history and physical examination the above work up was performed. Patient presents to us today with rectal pain. Decreased oral intake as of recent. On chemotherapy and radiation. He has a benign abdomen. Bladder scan performed here showing just over 300 but postvoid residual less than 100. Options of care were discussed with the patient. IV access was established. Labs were drawn. There is leukopenia 4.45. No concerning anemia. There is SIRISHA with creatinine of 2.36 and BUN of 37. Transaminitis noted as well with AST of 68 and ALT at 131. no evidence of kidney or liver failure. Will proceed with CT imaging of the abdomen/pelvis but without contrast in the SIRISHA. CT imaging as above. There is comment of long segment wall thickening of the rectum and the anus may be due to proctocolitis/stercoral proctocolitis with fecal matter resulting in mild impaction. Inflammatory change of the urinary bladder may be due to cystitis. Case discussed with the hospitalist service. I did consider manual disimpaction, however per review of the imaging and presentation and after discussion with hospitalist service, we will proceed with IV hydration and medicines at this time. Please refer to further documentation regarding his stay. GCS: 15 In the evaluation and treatment of this patient the following differential diagnoses were entertained: Kidney stone, bowel obstruction, urinary retention, colitis, fecal impaction, among others. Impression & Plan Proctocolitis, SIRISHA (acute kidney injury), Pain, rectal Discharge Plan Visit Data Chief Complaint: Rectal Pain Stated Complaint: RECTAL PAIN ED Provider: Adarsh Nunez ED Midlevel Provider: Seb Tyson Discharge Problem: Proctocolitis, SIRISHA (acute kidney injury), Pain, rectal Patient Disposition: Admitted As Inpatient Condition: Good Discharge Instructions Interventions: ED Discharge Assessment Last Done: 02/13/25 22:29
[2025-02-13 15:56] LABS: Hematocrit (blood only) 40.0 % (42.0-52.0); Hemoglobin 14.1 g/dL (14.0-18.0); Immature Granulocytes # (auto) 0.02 K/uL (0.01-0.20); Immature Granulocytes % (auto) 0.4 %; Mean Corpuscular Hemoglobin 33.7 pg (25.0-34.0); Mean Corpuscular Volume 95.5 fL (80.0-100.0); Platelet Count 202 K/uL (130-400); RDW Standard Deviation 49.8 fL (36.4-46.3); Red Blood Count 4.19 M/uL (4.70-6.10); White Blood Count 4.45 K/ul (4.8-10.8)
[2025-02-13 16:12] LABS: Alanine Aminotransferase 131 U/L (7-52); Albumin Globulin Ratio 1.3 (0.9-2); Albumin Level 3.5 gm/dl (3.4-5.0); Alkaline Phosphatase 55 U/L (34-104); Anion Gap 8 (3-11); Bilirubin,Total 1.0 mg/dl (0.2-1.0); Blood Urea Nitrogen 37 mg/dl (6-23); Calcium 8.4 mg/dl (8.6-10.3); Carbon Dioxide 33 mmol/L (21-32); Chloride 92 mmol/L (98-107); Globulin 2.8 gm/dl (2.5-4.0); Glucose 109 mg/dl (70-99(Fasting)); Potassium 4.0 mmol/L (3.5-5.1); Sodium 133 mmol/L (136-145); Total Protein 6.3 gm/dl (6.0-8.3)
[2025-02-13 16:28] LABS: Appearance Urine Clear (Clear); Bacteria Urine Automated None Seen (None Seen); Cast Urine Automated 0-2 /lpf (0-2); Epithelial Cell Urine Auto 0-2 /hpf (0-2); Glucose Urine UA Negative (Negative); WBC Urine Automated 0-5 /hpf (0-5)
[2025-02-13] MEDS: SODIUM CHLORIDE 0.9% 1,000 ML IV ONE (18:25)
--- NOTE | 2025-02-13 19:54 | CT Scan Report ---
CT ABDOMEN and PELVIS without INTRAVENOUS CONTRAST HISTORY: Abdominal pain TECHNIQUE: CT abdomen and pelvis without contrast. IV CONTRAST: None ENTERIC CONTRAST: None. COMPARISON: None FINDINGS: LOWER CHEST: Left basilar atelectasis versus scarring. Coronary valvular calcifications of the heart. Multiple pulmonary nodules in the right middle lobe measuring 3 mm. LIVER: No focal lesion identified in this noncontrast study. GALLBLADDER/BILIARY: Unremarkable gallbladder. No abnormal biliary dilatation. SPLEEN: Unremarkable. PANCREAS: Unremarkable. ADRENALS: Unremarkable. KIDNEYS: Unremarkable. No stones or hydronephrosis identified. PERITONEUM/RETROPERITONEUM. No lymphadenopathy by size criteria. No aortic aneurysm. GASTROINTESTINAL: No obstruction. Normal appendix. Colonic diverticulosis without evidence of diverticulitis. There is a long segment wall thickening of the rectum and the anus mildly impacted by the fecal matter REPRODUCTIVE: Poorly evaluated due to streak artifact from hip arthroplasty URINARY BLADDER: Inflammatory changes wall thickening. BONES: No acute findings. Bilateral hip arthroplasties. IMPRESSION: Long-segment wall thickening of the rectum and the anus may be due to proctocolitis/stercoral proctocolitis with fecal matter resulting in mild impaction. Inflammatory changes of the urinary bladder may be due to cystitis. Electronically signed by Hira Thomson 02-13-2025 7:53 PM
--- NOTE | 2025-02-13 20:06 | History & Physical Report ---
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 His evaluation is with mild leukopenia and anemia 4.45 and then 14.1/40 respectively. CMP does reveal some electrolyte abnormalities, sodium 133, ch loride 92 and renal functions of creatinine 2.36. CTAP long segment wall thickening rectum and anus may be due to proctocolitis/stercoral proctocolitis with fecal matter resulting in mild impaction as well as inflammatory changes of the urinary bladder. Admission for SIRISHA, electrolyte disturbances, rectal pain. #SIRISHA Likely secondary to renal hypoperfusion due to decreased oral intake from nausea and dry-heaving. Received 1L NSS in ED. 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 H/o hemorrhoids. No blood in stool. Last BM 3 day FILM MASKER. Suspect some of the rectal pain that he is having may be secondary to the fecal loading. - CBC leukopenia; LFTs AST 68/ALT 131 - LFTs am - CTAP long segment wall thickening rectum/anus, may be proctocolitis with fecal matter resulting in mild impaction - IVF as above - Constipation regimen -- Start with MiraLAX + IVF, if no relief by am with gentle regimen, add on additional laxative options - Empiric abx given immunocompromised on chemo -- multiple drug allergies (amoxicillin, cephalexin, cefazolin) -- Cipro + metronidazole IV initiated #Hyponatremia/Hypocalcemia In setting of mild hyperglycemia (109); albumin normal; hypocalcemia, in setting of known cancer and active chemotherapy (cisplatin). - Na 133, glucose 109 - BMP am - Calcium 8.4, phosphate pending - Serum osmol, Urine Na, Urine Osmol pending - IVF as above - Calcium carbonate po #Transaminitis No abdominal pain, reports rectal pain though. Takes 2 Tylenol per night. ? drug induced, no infectious symptoms present other than some nausea. Denies alcohol use. - AST 68, ALT 131, bilirubin 1, alkaline phosphatase 55; PT/INR pending - trend as appropriate - Hold hepatotoxic medications for now -- Acetaminophen - Hepatitis panel + EBV pending - Consider GI consult as necessary - none placed at time of admission #FVL- H/o PE 03/2023; Apixaban - continue #HTN- Losartan-HCTZ - HOLD at time of admission given SIRISHA #Psych- Olanzapine was for during chemo initiation x 4 days, should have been 02/07-02/11 - HOLD #Malignant neoplasm of tongue- Dx 11/2024, receiving radiation currently daily (started January 16) as well as chemotherapy with most recent dose being 02/07 (cisplatin). Follows with heme/onc, most recent visit 01/02/2025. Consider heme/onc consult as appropriate/prolonged stay. Dispo: Obs, med/sx VTE prophylaxis: On Apixaban - continue This document was dictated utilizing [employer]. Please excuse any grammatical errors that may be secondary to use of this software. 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 Patient reports that he is having pain "directly at my butt hole" which started approximately 3 days FILM MASKER. He states that this have increased pressure whenever he is walking at that same area or whenever he is adjusting with sitting. Patient says that he has a history of hemorrhoids, has been using Preparation H over the past 2 to 3 days to try to alleviate some of the symptoms but this has not helped much. He states that nearly everything is irritating to the discomfort and he cannot get comfortable with it. He did have some overflow diarrhea a few days FILM MASKER, but his last "normal" bowel movement was approximately 3 days FILM MASKER. He has not had any bowel movement since then. He did not know any blood or mucus in his stool. Patient is having nausea and dry heaving, but no vomiting. No abdominal pain. Patient has not been sick otherwise, no fever or chills or known sick contacts. He is receiving chemotherapy which his last dose was approximately 1 week ago on 02/2025. He also has radiation daily which was started on 01/16/2025. He denies chest pain, SOB, palpitations, abdominal pain, diarrhea, numbness/tingling, fever/chills, URI symptoms, LUTS, weakness, syncope, or falls. He does take 2 Tylenol per night nearly every night for pain, but denies drinking alcohol. Patient never had these types of symptoms happen before. ED evaluation revealed CBC with leukopenia 4.45, H&H 14.1/40, platelets stable; CMP sodium 133, chloride 92, CO2 33, BUN 37, creatinine 2.36, glucose 109, calcium 8.4, AST 68, ALT 131; UA without infection; CTAP long segment wall thickening rectum and anus may be due to proctocolitis/stercoral proctocolitis with fecal matter resulting in mild impaction as well as inflammatory changes of the urinary bladder.; Provided with 1L NSS in ED. Please see Dr. Horan's attestation for adjustments/additions to treatment plan. Allergies Allergy/AdvReac Type Severity Reaction Status Date / Time amoxicillin Allergy Hives Verified 02/13/25 19:12 cefazolin Allergy Hives Verified 02/13/25 19:12 cephalexin Allergy . Verified 02/13/25 19:12 gabapentin Allergy Hallucinati Verified 02/13/25 19:12 ng thiopental [From Pentothal] Allergy Unknown Verified 02/13/25 19:12 Home Medications Medication Instructions Recorded Confirmed Type apixaban 5 mg tablet (Eliquis) 5 mg PO BID 12/12/24 02/13/25 History acetaminophen 325 mg tablet 650 mg PO QID PRN Pain 01/21/25 02/13/25 History (Tylenol) prochlorperazine maleate 10 mg 10 mg PO Q6H PRN Nausea And 01/21/25 02/13/25 History tablet (Compazine) Vomiting Magic Mouthwash 300 mL mouthwash 10 ml mucous membrane ACHS Sore 01/28/25 02/13/25 Rx throat #300 mL nystatin 100,000 unit/mL oral 5 ml PO QID 10 days #200 mL 02/04/25 02/13/25 Rx suspension losartan 50 mg-hydrochlorothiazide 1 tab PO QAM 02/13/25 02/13/25 History 12.5 mg tablet olanzapine 2.5 mg tablet See Rx Instructions .Route .COMPLEX 02/13/25 02/13/25 History ondansetron 8 mg disintegrating 8 mg PO Q8H PRN Nausea And Vomiting 02/13/25 02/13/25 History tablet Past Med/Surg History Problem List (Updated 02/14/25 @ 11:49 by Seb Tyson PA-C) Pain, rectal (Acute) Transaminitis Hypocalcemia Hyponatremia Constipation Proctocolitis (Acute) SIRISHA (acute kidney injury) (Acute) Lymphadenopathy Generalized osteoarthritis Factor V Leiden Malignant neoplasm of base of tongue (Chronic 11/26/24) Morbid obesity Elevated troponin I level (Acute) Chest pain (Acute) Hypertension Medical History DJD (degenerative joint disease) DVT (deep venous thrombosis) Pulmonary embolism and infarction Surgical History Hx of LASIK History of cataract surgery History of knee replacement right and left S/P hip replacement right and left Family History Father Cancer Lung cancer Mother Cancer Breast cancer Social History Smoking Status: Former smoker Tobacco Type: Smokeless Tobacco (Dip or Chew) Hx Alcohol Use: No Hx Substance Use: No Preferred Language: Spanish Communication Ability: Effective Rn Telephone Triage Required: No Beliefs That Will Affect Care: None Current Living Situation: Spouse current occupational status: retired 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 Feels Safe at Home: Yes Safety Concerns: Feels Safe At This Time Diet: regular Assistive Devices: CPAP and Walker Review of Systems Review of Systems: All systems reviewed & are unremarkable except as noted in Subjective Physical Exam Physical Exam: General: No acute distress Skin: Warm and dry, no jaundice Head: Normocephalic, atraumatic Eyes: PERRL, conjunctivae clear, sclera non-icteric ENT: External ear and ear canal without swelling; nose atraumatic; good dentition, tongue normal appearance, pharynx normal but appears dry Neck: Supple, no LAD Cardio: RRR, no M/G/R, S1 and S2 normal Resp: No respiratory distress, Lungs CTA in all lobes bilaterally, no wheezes, rales, or rhonchi Abdomen: Soft, symmetric, nontender; No masses or hepatosplenomegaly; Bowel sounds normoactive MSK: No deformities; pulses palpable and equal; mild trace pitting edema bilateral LE to mid calf. Neuro: Awake, alert; Sensation intact bilaterally; CN grossly intact Psych: Appropriate mood and affect; good judgement and insight. present in room at time of visit, daughter present on phone call during time of visit. Results & Data Results & Data Vital Signs (Past 12 Hours) Vital Signs Temp Pulse Pulse Resp BP Pulse Ox O2 Del Method 02/13/25 17:00 77 20 140/73 99 Room Air 02/13/25 15:51 67 140/73 97 Room Air 02/13/25 14:35 36.3 C L 96 H 14 97 Room Air Laboratory Results 02/13/25 02/13/25 16:12 15:40 WBC 4.45 L RBC 4.19 L Hgb 14.1 Hct 40.0 L MCV 95.5 MCH 33.7 MCHC 35.3 RDW Std Deviation 49.8 H RDW Coeff of Arias 14.2 Plt Count 202 MPV 8.9 L Immature Gran % (Auto) 0.4 Neut % (Auto) 59.3 Lymph % (Auto) 21.1 Craven % (Auto) 18.4 Eos % (Auto) 0.4 Baso % (Auto) 0.4 Neut # (Auto) 2.63 Lymph # (Auto) 0.94 L Craven # (Auto) 0.82 H Eos # (Auto) 0.02 Baso # (Auto) 0.02 Immature Gran # (Auto) 0.02 Sodium 133 L Potassium 4.0 Chloride 92 L Carbon Dioxide 33 H Anion Gap 8 BUN 37 H Creatinine 2.36 H Est Cr Clr Drug Dosing Not Reportable eGFR 28.36 BUN/Creatinine Ratio 15.7 Glucose 109 H Calcium 8.4 L Total Bilirubin 1.0 AST 68 H ALT 131 H Alkaline Phosphatase 55 Total Protein 6.3 Albumin 3.5 Globulin 2.8 Albumin/Globulin Ratio 1.3 Urine Color Yellow Urine Appearance Clear Urine pH 7.5 Ur Specific [place] 1.015 Urine Protein 1+ H Urine Glucose (UA) Negative Urine Ketones Trace H Urine Blood Negative Urine Nitrite Negative Urine Bilirubin Negative Urine Urobilinogen Negative Ur Leukocyte Esterase Negative Urine WBC (Auto) 0-5 Urine RBC (Auto) 3-5 H U Hyaline Cast (Auto) 0-2 U Epithel Cells (Auto) 0-2 Urine Bacteria (Auto) None Seen Urine Comment Diagnostic Findings Abdomen/Pelvis CT 02/13/25 16:14 CT ABDOMEN and PELVIS without INTRAVENOUS CONTRAST HISTORY: Abdominal pain TECHNIQUE: CT abdomen and pelvis without contrast. IV CONTRAST: None ENTERIC CONTRAST: None. COMPARISON: None FINDINGS: LOWER CHEST: Left basilar atelectasis versus scarring. Coronary valvular calcifications of the heart. Multiple pulmonary nodules in the right middle lobe measuring 3 mm. LIVER: No focal lesion identified in this noncontrast study. GALLBLADDER/BILIARY: Unremarkable gallbladder. No abnormal biliary dilatation. SPLEEN: Unremarkable. PANCREAS: Unremarkable. ADRENALS: Unremarkable. KIDNEYS: Unremarkable. No stones or hydronephrosis identified. PERITONEUM/RETROPERITONEUM. No lymphadenopathy by size criteria. No aortic aneurysm. GASTROINTESTINAL: No obstruction. Normal appendix. Colonic diverticulosis without evidence of diverticulitis. There is a long segment wall thickening of the rectum and the anus mildly impacted by the fecal matter REPRODUCTIVE: Poorly evaluated due to streak artifact from hip arthroplasty URINARY BLADDER: Inflammatory changes wall thickening. BONES: No acute findings. Bilateral hip arthroplasties. IMPRESSION: Long-segment wall thickening of the rectum and the anus may be due to proctocolitis/stercoral proctocolitis with fecal matter resulting in mild impaction. Inflammatory changes of the urinary bladder may be due to cystitis. Electronically signed by Hira Thomson 02-13-2025 7:53 PM Medications Administered NSS 1L Code Status & VTE Plan Code Status Full Supervising Physician Co-Signing Physician Notes Attending addendum: I have physically seen this patient, have supervised the SILVA's activities, and agree with the H&P unless as otherwise noted. Assessment and Plan: The patient is a 74-year-old male with past medical history including hypertension, malignant neoplasm of left tongue 11/29, factor V Leiden, and generalized osteoarthritis. He presents to the emergency department with 3 days of rectal pain and decreased bowel movements. CT scan of abdomen and pelvis in the ED suggestive of stercoral proctocolitis with fecal matter mild impaction. Inflammatory changes of the urinary bladder are noted as well. Acute kidney injury- Creatinine 2.36 admission, with baseline 1.28. Follow urine culture and sensitivity Bladder scan as needed For now hold lisinopril/HCTZ Give 1 L LR fluid bolus now, then 125 mL/h. Repeat laboratories in a.m. Proctocolitis/constipation/rectal pain- CT scan of abdomen and pelvis showed long segment of wall thickening in the rectum and anus, and may be proctocolitis of fecal matter resulting in mild impaction. Avoid digital manipulation due to relative immunosuppression on chemotherapy IV fluids as above MiraLAX as noted Transaminitis- AST 68, ALT 131- CT scan without liver abnormalities Hepatitis panel pending Avoid acetaminophen and other potential hepatotoxic medications Malignant neoplasm of tongue- Diagnosed 11/29 Currently receiving radiation therapy that began 01/16/2025 and chemotherapy. Most recent chemo dose of cisplatin was 02/07. Serial laboratories, and aggressive antibiotic therapy otherwise due to immunosuppression Remaining orders and notations as noted PG Care Time/CCT Total # of Minutes Spent Total Time Spent with Patient: Total time spent is greater than 50% in coordination of care (as documented) at patient's floor/unit and/or counseling patient: Coding Level of Care Code 93373 INT INP/OBS CARE 375MIN Diagnoses SIRISHA (acute kidney injury) N17.9 Proctocolitis K52.9 Constipation K59.00 Hyponatremia E87.1 Hypocalcemia E83.51 Transaminitis R74.01
[2025-02-13] MEDS: APIXABAN 5 MG TABLET PO STA (21:34)
[2025-02-13] MEDS: POLYETHYLENE (MIRALAX) 17 GM PACK PO SCH (21:35)
[2025-02-13] MEDS: Patient's HEIGHT &/or WEIGHT Needed STA (21:48)
[2025-02-13] MEDS: metroNIDAZOLE 500 MG/100 ML BAG IV STA (21:49)
[2025-02-13] MEDS: LACTATED RINGER'S 1,000 ML IV ONE (21:51)
[2025-02-13 22:03] LABS: INR 1.1 (0.9-1.1); Prothrombin Time 11.5 Seconds (9.0-12.0)
[2025-02-13] MEDS ORDERED: MELATONIN 3 MG TAB PO PRN (22:46)
[2025-02-13] MEDS ORDERED: PROCHLORPERAZINE MALEATE 10 MG TAB PO PRN (22:46)
[2025-02-13] MEDS ORDERED: ONDANSETRON INJ 2 MG/ML 2 ML VIAL IV PRN (22:46)
[2025-02-13] MEDS ORDERED: ONDANSETRON 4 MG OD TAB PO PRN (22:49)
[2025-02-13] MEDS: CIPROFLOXACIN / D5W 400 MG/200 ML BAG IV STA (23:26)
[2025-02-13] MEDS: LACTATED RINGER'S 1,000 ML IV SCH (23:27)
[2025-02-13] MEDS: SODIUM PHOSPHATE 21 MMOL in SODIUM CHLORIDE 0.9% 500 ML IV ONE (23:55)
[2025-02-13] MEDS: FIRST - Mouthwash BLM 119 ML PO SCH (23:56)
[2025-02-14] MEDS: SODIUM PHOSPHATE 3 MMOL/1 ML 5 ML VIAL IV ONE (00:30)
[2025-02-14] MEDS ORDERED: HYDROCORTISONE 1% OINT 30 GM TUBE EXT PRN (03:41)
[2025-02-14] MEDS: ACETAMINOPHEN 500 MG TAB PO PRN (03:50)
[2025-02-14] MEDS ORDERED: HYDROCORTISONE HC 2.5% CRM 30GM TUBE EXT PRN (03:57)
[2025-02-14] MEDS: metroNIDAZOLE 500 MG/100 ML BAG IV SCH (06:21)
[2025-02-14 08:21] LABS: Alanine Aminotransferase 124.0 U/L (7-52); Albumin Level 2.9 gm/dl (3.4-5.0); Alkaline Phosphatase 45.0 U/L (34-104); Anion Gap 7.0 (3-11); Bilirubin,Total 1.0 mg/dl (0.2-1.0); Blood Urea Nitrogen 34.0 mg/dl (6-23); Calcium 7.5 mg/dl (8.6-10.3); Carbon Dioxide 32.0 mmol/L (21-32); Chloride 94.0 mmol/L (98-107); Creatinine Clr Calc Pharmacy 46.6 ml/min; Glucose 82.0 mg/dl (70-99(Fasting)); Potassium 3.1 mmol/L (3.5-5.1); Sodium 133.0 mmol/L (136-145); Total Protein 5.3 gm/dl (6.0-8.3)
[2025-02-14] MEDS: CIPROFLOXACIN / D5W 400 MG/200 ML BAG IV SCH (08:24)
[2025-02-14] MEDS: CALCIUM CARBONATE 1,250 MG/5 ML UDC PO SCH (08:24)
[2025-02-14] MEDS: APIXABAN 5 MG TABLET PO SCH (08:29)
[2025-02-14] MEDS: POTASSIUM CHLORIDE CRTAB 20 MEQ TABCR PO STA (08:48)
[2025-02-14 09:26] LABS: EBV Nuclear Antigen IgG Ab Positive; EBV Nuclear Antigen IgG Quant 69.3 U/mL (< 18.0)
[2025-02-14 09:28] LABS: EBV IgG Antibody Positive; EBV IgG Quant > 750.0 U/mL (< 18.0)
[2025-02-14 09:29] LABS: EBV IgM Antibody Negative; EBV IgM Quant < 10.0 U/mL (< 36.0)
[2025-02-14 09:32] LABS: Hep B Surface Ag with confirm Negative (Negative)
[2025-02-14 09:37] LABS: Hep C Ab Rflx HepCQuant RNA Negative (Negative)
--- NOTE | 2025-02-14 11:14 | Hospitalist Progress Note ---
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 His evaluation is with mild leukopenia and anemia. CMP does reveal some electrolyte abnormalities, sodium 133, chloride 92 and renal functions of creatinine 2.36. CTAP long segment wall thickening rectum and anus may be due to proctocolitis/stercoral proctocolitis with fecal matter resulting in mild impaction as well as inflammatory changes of the urinary bladder. Admission for SIRISHA, electrolyte disturbances, rectal pain. #SIRISHA - Likely secondary to renal hypoperfusion due to decreased oral intake from nausea and dry-heaving. UA without infection. Cr 2.36 on arrival, with baseline ~1 Hold nephrotoxic agents - lisinopril-HCTZ Cr slowly improving, PO intake poor. 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 H/o hemorrhoids. No blood in stool. Last BM 02/10. CTAP long segment wall thickening rectum/anus, may be proctocolitis with fecal matter resulting in mild impaction Bowel regimen: increase to miralax TID, senokot qAM. PO dulcolax x1. Encourage PO fluids Discussed likely enema or suppository if no BM today Empiric abx given immunocompromised on chemo -- multiple drug allergies - Cipro + metronidazole IV continued #Hyponatremia/Hypocalcemia - albumin normal; hypocalcemia, in setting of known cancer and active chemotherapy (cisplatin). Na 133 Calcium 8.4, phosphate pending Urine osm 492, serum osm 286, urine na 72 IVF as above Calcium carbonate po #Transaminitis No abdominal pain. Takes 2 Tylenol per night. ? drug induced, no infectious symptoms present other than some nausea. Denies alcohol use. Possibly due to cisplatin Hepatitis panel negative so far, EBV panel suggest past infection LFTs stable AM CMP #Factor V liden - H/o PE 03/2023; Apixaban - continue #HTN- Losartan-HCTZ - HOLD at time of admission given SIRISHA #Psych- Olanzapine was for during chemo initiation x 4 days, should have been 02/07-02/11 - HOLD #Malignant neoplasm of tongue- Dx 11/2024, receiving radiation currently daily (started January 16) as well as chemotherapy with most recent dose being 02/07 (cisplatin). Follows with heme/onc, most recent visit 01/02/2025. Continued radiation while inpatient Dispo: continued inpatient stay, trending Cr and monitoring for BM VTE prophylaxis: Apixaban updated at bedside 02/14 Admission and Anticipated Discharge Date Admission Date: February 13, 2025 Supervising Physician Co-Signing Physician Notes I did not see or examine the patient. I verified all chin points and agree with Merary Sepulveda PA-C with the following exceptions and/or additions: None Subjective Patient seen lying in bed, present at bedside rectal pain is about the same, last BM 02/10 denies abd pain decreased PO intake at home no other acute concerns Review of Systems Review of Systems: All systems reviewed & are unremarkable except as noted in Subjective Physical Exam Physical Exam: General: NAD, VS as above Resp: normal respiratory effort, lungs clear to auscultation. port in place CV: RRR, no murmur, Abd: normal bowel sounds, non tender, fullness in the LLQ Extremities: Moves all extremities, no edema Neuro: A&O x3, Skin: intact, no lesions noted Results & Data Results & Data Vital Signs (Past 12 Hours) Vital Signs Temp Pulse Resp BP Pulse Ox O2 Del Method 02/14/25 09:09 Room Air 02/14/25 08:04 98.2 F 55 L 18 116/67 97 Room Air Laboratory Results cbc and chemistry reviewed LFTs reviewed EBV pannel reviewed PG Care Time/CCT Total # of Minutes Spent Total Time Spent with Patient: Total time spent is greater than 50% in coordination of care (as documented) at patient's floor/unit and/or counseling patient: Coding Level of Care Code 41398 SUB INP/OBS CARE 3/50MIN Diagnoses SIRISHA (acute kidney injury) N17.9 Proctocolitis K52.9 Constipation K59.00 Hyponatremia E87.1 Hypocalcemia E83.51 Transaminitis R74.01
[2025-02-14] MEDS: DOCUSATE SODIUM/SENNA 50/8.6MG TAB PO SCH (11:21)
[2025-02-14] MEDS: POLYETHYLENE (MIRALAX) 17 GM PACK PO SCH (13:46)
[2025-02-15 08:07] LABS: Alanine Aminotransferase 108.0 U/L (7-52); Albumin Globulin Ratio 1.3 (0.9-2); Albumin Level 3.0 gm/dl (3.4-5.0); Alkaline Phosphatase 45.0 U/L (34-104); Anion Gap 7.0 (3-11); Bilirubin,Total 0.9 mg/dl (0.2-1.0); Blood Urea Nitrogen 27.0 mg/dl (6-23); Calcium 7.9 mg/dl (8.6-10.3); Carbon Dioxide 30.0 mmol/L (21-32); Chloride 95.0 mmol/L (98-107); Creatinine Clr Calc Pharmacy 51.6 ml/min; Globulin 2.3 gm/dl (2.5-4.0); Glucose 89.0 mg/dl (70-99(Fasting)); Magnesium 1.5 mg/dl (1.7-2.4); Potassium 3.5 mmol/L (3.5-5.1); Sodium 132.0 mmol/L (136-145); Total Protein 5.3 gm/dl (6.0-8.3)
[2025-02-15] MEDS: SOD PHOSPHATE/SOD BIPHOSPHATE ENEMA 132 ML BTL PR PRN (09:02)
[2025-02-15] MEDS: MoRPHine SULFATE 4 MG/ML 1 ML CARP\\VIAL IV STA (11:04)
--- NOTE | 2025-02-15 11:42 | Hospitalist Progress Note ---
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 His evaluation is with mild leukopenia and anemia. CMP does reveal some electrolyte abnormalities, sodium 133, chloride 92 and renal functions of creatinine 2.36. CTAP long segment wall thickening rectum and anus may be due to proctocolitis/stercoral proctocolitis with fecal matter resulting in mild impaction as well as inflammatory changes of the urinary bladder. Admission for SIRISHA, electrolyte disturbances, rectal pain. 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 H/o hemorrhoids. No blood in stool. Last BM 02/10. CTAP long segment wall thickening rectum/anus, may be proctocolitis with fecal matter resulting in mild impaction Bowel regimen: increase to miralax TID, senokot qAM. PO dulcolax x1. Encourage PO fluids Discussed likely enema or suppository if no BM today Empiric abx given immunocompromised on chemo -- multiple drug allergies - Cipro + metronidazole IV continued 4mg morphine given for pain. Can give low doses PRN for severe pain #SIRISHA - Likely secondary to renal hypoperfusion due to decreased oral intake from nausea and dry-heaving. UA without infection. Cr 2.36 on arrival, with baseline ~1. Improving after IV fluids, 1.87 this AM Hold nephrotoxic agents - lisinopril-HCTZ Continue maintenance fluid, encourage PO K repleted 02/14 and is wnl this AM Daily CMP and Mg #Hyponatremia/Hypocalcemia - albumin normal; hypocalcemia, in setting of known cancer and active chemotherapy (cisplatin). Na remains low at 132 Calcium up slightly from 7.5 to 7.9; phos 2.9 and albumin 3.0 Urine osm 492, serum osm 286, urine na 72 Continue IVF as above Calcium carbonate po #Transaminitis No abdominal pain. Takes 2 Tylenol per night. ? drug induced, no infectious symptoms present other than some nausea. Denies alcohol use. Possibly due to cisplatin Hepatitis panel negative so far, EBV panel suggest past infection LFTs stable AM CMP #Factor V liden - H/o PE 03/2023; Apixaban - continue #HTN- Losartan-HCTZ - HOLD at time of admission given SIRISHA #Psych- Olanzapine was for during chemo initiation x 4 days, should have been 02/07-02/11 - HOLD #Malignant neoplasm of tongue- Dx 11/2024, receiving radiation currently daily (started January 16) as well as chemotherapy with most recent dose being 02/07 (cisplatin). Follows with heme/onc, most recent visit 01/02/2025. Continued radiation while inpatient Dispo: continued inpatient stay, trending Cr and monitoring for BM VTE prophylaxis: Apixaban Admission and Anticipated Discharge Date Admission Date: February 14, 2025 Supervising Physician Co-Signing Physician Notes Attending attestation Pt seen and examined in concert with Dr. Jimenez. In agreement with the documented findings as noted in the resident documentation with any exceptions or additions as noted here. At time of examination patient reports ongoing rectal pain with desire for BM without production of fecal matter c/w complaint. VS as noted. On examination, S1/S2 nl RRR no MCG. CTAB. Abd NT/ND BS+ve Proctocolitis with rectal pain/spasm and constipation - will trial morphine 4mg and consider topical therapy if unresponsive or exceeding sx. Continue cipro/metronidazole therapy. Consider escalate bowel regimen vs. repeat enema SIRISHA - gradual improvement. Strongly encourage POI, consider IV with plateau in the AM. Else see resident documentation as noted. Subjective Patient was in moderate distress, expressed severe rectal pain and spasms. No BM despite enema given this morning. Does not have pain elsewhere or any n/v, CP, SOB. Review of Systems Review of Systems: As per HPI. Physical Exam Physical Exam: Gen: WD/WN, moderate distress CV: RRR, no m/r/g Resp: CTAB, breathing unlabored Skin: Warm, dry, well-perfused, no rashes bruising or other lesions appreciated Otherwise as per attending documentation Results & Data Results & Data Vital Signs (Past 12 Hours) Vital Signs Temp Pulse Resp BP Pulse Ox O2 Del Method 02/15/25 09:14 Room Air 02/15/25 08:44 36.6 C 81 18 128/80 94 Room Air Resident Activity Tracking Resident Involvement: Resident Care Provided Care Provided: Adult Hospital Medicine
[2025-02-16 07:09] LABS: Alanine Aminotransferase 86.0 U/L (7-52); Albumin Globulin Ratio 1.3 (0.9-2); Albumin Level 3.1 gm/dl (3.4-5.0); Alkaline Phosphatase 48.0 U/L (34-104); Anion Gap 9.0 (3-11); Bilirubin,Total 0.9 mg/dl (0.2-1.0); Blood Urea Nitrogen 25.0 mg/dl (6-23); Calcium 8.1 mg/dl (8.6-10.3); Carbon Dioxide 30.0 mmol/L (21-32); Chloride 93.0 mmol/L (98-107); Creatinine Clr Calc Pharmacy 53.9 ml/min; Globulin 2.3 gm/dl (2.5-4.0); Glucose 88.0 mg/dl (70-99(Fasting)); Magnesium 1.5 mg/dl (1.7-2.4); Potassium 3.2 mmol/L (3.5-5.1); Sodium 132.0 mmol/L (136-145); Total Protein 5.4 gm/dl (6.0-8.3)
[2025-02-16 10:58] LABS: Hepatitis A Antibody IgM NON-REACTIVE (NON-REACTIVE); Hepatitis B Core Antibody IgM NON-REACTIVE (NON-REACTIVE)
--- NOTE | 2025-02-16 13:27 | Hospitalist Progress Note ---
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 His evaluation is with mild leukopenia and anemia. CMP does reveal some electrolyte abnormalities, sodium 133, chloride 92 and renal functions of creatinine 2.36. CTAP long segment wall thickening rectum and anus may be due to proctocolitis/stercoral proctocolitis with fecal matter resulting in mild impaction as well as inflammatory changes of the urinary bladder. Admission for SIRISHA, electrolyte disturbances, rectal pain. 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 H/o hemorrhoids. No blood in stool. Last BM 02/10. CTAP long segment wall thickening rectum/anus, may be proctocolitis with fecal matter resulting in mild impaction - Did have enema yesterday but still no BM. Given 85mg miralax today. Continue miralax TID, senokot qAM. - Rectal pain is improved. Pt not needed analgesics since 4mg morphine yesterday AM. Promising that proctocolitis is improving and normal GI function may soon follow - Continue gentle IV hydration with LR at 80ml/hr. Encourage PO fluids - Continue empiric abx given immunocompromised on chemo - Cipro + metronidazole IV - Can give 1x IV morphine if severe pain but not ordered as ongoing PRN #SIRISHA - Likely secondary to renal hypoperfusion due to decreased oral intake from nausea and dry-heaving. UA without infection. - Cr 2.36 on arrival, with baseline ~1. Improving after IV fluids, 1.79 this AM - Hold nephrotoxic agents - lisinopril-HCTZ - Continue maintenance fluid, encourage PO - K repleted 02/14, was wnl 02/15, down to 3.2 again this AM. Will give another 40mEq po - s/p 2g Mag sulf. Mg today still 1.5 Will give another 2g IV - Daily CMP and Mg #Hyponatremia/Hypocalcemia - albumin normal; hypocalcemia, in setting of known cancer and active chemotherapy (cisplatin). - Na remains low at 132 - Calcium stable ~8; phos 2.9 and albumin 3.0 - Urine osm 492, serum osm 286, urine na 72 - Continue IVF as above - Continue calcium carbonate po #Transaminitis - Possibly drug-induced - pt does take 2 Tylenol per night, vs on cisplatin. No infectious symptoms. Denies alcohol use. Hepatitis panel negative so far, EBV panel suggests past infection, LFTs improving and near normal range - AM CMP #Factor V liden - H/o PE 03/2023; Apixaban - continue #HTN- Losartan-HCTZ - held in the setting of SIRISHA #Psych- Olanzapine was for during chemo initiation x 4 days, should have been 02/07-02/11 - HOLD #Malignant neoplasm of tongue- Dx 11/2024, receiving radiation currently daily (started January 16) as well as chemotherapy with most recent dose being 02/07 (cisplatin). Follows with heme/onc, most recent visit 01/02/2025. Continued radiation while inpatient Dispo: continued inpatient stay, trending Cr and monitoring for BM VTE prophylaxis: Apixaban Admission and Anticipated Discharge Date Admission Date: February 14, 2025 Supervising Physician Co-Signing Physician Notes Attending attestation Pt seen and examined in concert with Dr. Jimenez. In agreement with the documented findings as noted in the resident documentation with any exceptions or additions as noted here. Significant improvement in rectal pain though without BM thus far. VS as noted. On examination, S1/S2 nl RRR no MCG. CTAB. Abd NT/ND BS+ve Proctocolitis with rectal pain/spasm and constipation - continue morphine 4mg q4PRN for pain control w/ worsening pain. Escalate PO bowel regimen as noted and monitor. Strongly encourage POI. SIRISHA - ongoing improvement. Strongly encourage POI, consider IV with plateau. Daily BMP. Else see resident documentation as noted. Subjective NAEO. Patient is feeling much improved this morning. Has not had rectal pain since dose of morphine ~24h ago. Has not had a BM yet. Is doing well with PO. Denies MARQUEZ, CP, SOB, abd pain Review of Systems Review of Systems: As per HPI. Physical Exam Physical Exam: Gen: AOx3, NAD, WD/WN HEENT: NCAT, normal conjunctiva, MMM CV: RRR, no m/r/g, normal S1/S2, no LE edema Resp: CTAB, symmetrical chest rise, breathing unlabored Abd: Soft, nontender, +BSx4 MSK: Full ROM, no gross deformities on inspection Skin: Warm, dry, well-perfused Neuro: CN II-XII grossly intact, no focal deficits Psych: Full, euthymic affect. Speech pace and thought content normal. Results & Data Results & Data Vital Signs (Past 12 Hours) Vital Signs Temp Pulse Resp BP Pulse Ox O2 Del Method 02/16/25 07:44 36.6 C 72 20 133/71 92 Room Air Resident Activity Tracking Resident Involvement: Resident Care Provided Care Provided: Adult Hospital Medicine
[2025-02-16] MEDS: POLYETHYLENE (MIRALAX) 17 GM PACK PO ONE (13:38)
[2025-02-16] MEDS: MoRPHine SULFATE 4 MG/ML 1 ML CARP\\VIAL IV STA (16:53)
[2025-02-16] MEDS: POTASSIUM CHLORIDE CRTAB 20 MEQ TABCR PO STA (16:55)
[2025-02-16] MEDS: LACTATED RINGER'S 1,000 ML IV SCH (16:57)
[2025-02-16] MEDS: MAGNESIUM SULFATE / D5W 1 GM/100 ML BAG IV SCH (16:57)
[2025-02-17 06:38] LABS: Alanine Aminotransferase 71.0 U/L (7-52); Albumin Globulin Ratio 1.3 (0.9-2); Albumin Level 3.1 gm/dl (3.4-5.0); Alkaline Phosphatase 48.0 U/L (34-104); Anion Gap 7.0 (3-11); Bilirubin,Total 0.8 mg/dl (0.2-1.0); Blood Urea Nitrogen 21.0 mg/dl (6-23); Calcium 8.3 mg/dl (8.6-10.3); Carbon Dioxide 30.0 mmol/L (21-32); Chloride 96.0 mmol/L (98-107); Creatinine Clr Calc Pharmacy 56.1 ml/min; Globulin 2.3 gm/dl (2.5-4.0); Glucose 95.0 mg/dl (70-99(Fasting)); Magnesium 1.8 mg/dl (1.7-2.4); Potassium 3.6 mmol/L (3.5-5.1); Sodium 133.0 mmol/L (136-145); Total Protein 5.4 gm/dl (6.0-8.3)
--- NOTE | 2025-02-17 15:37 | Hospitalist Progress Note ---
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 His evaluation is with mild leukopenia and anemia. CMP does reveal some electrolyte abnormalities, sodium 133, chloride 92 and renal functions of creatinine 2.36. CTAP long segment wall thickening rectum and anus may be due to proctocolitis/stercoral proctocolitis with fecal matter resulting in mild impaction as well as inflammatory changes of the urinary bladder. Admission for SIRISHA, electrolyte disturbances, rectal pain. 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 H/o hemorrhoids. No blood in stool. Last BM 02/10. CTAP long segment wall thickening rectum/anus, may be proctocolitis with fecal matter resulting in mild impaction - Had enema 12/12 AM and 85mg miralax yesterday AM. Had 2 small BMs overnight. Continue miralax TID, senokot qAM. - Rectal pain is improved. Pt periodically needing analgesics; 4mg morphine given yesterday PM, no pain today. - Stopped IVF; Encourage PO fluids - Continue empiric abx given immunocompromised on chemo - Cipro + metronidazole IV. Transition to PO of same at discharge - Can give 1x IV morphine if severe pain but not ordered as ongoing PRN #SIRISHA - Likely secondary to renal hypoperfusion due to decreased oral intake from nausea and dry-heaving. UA without infection. - Cr 2.36 on arrival, with baseline ~1. Improving after IV fluids; Cr today 1.75. - Hold nephrotoxic agents - lisinopril-HCTZ - K and Mg repleted 02/14 and 02/16; now wnl - Stopped IVF. Will see how patient does with just oral hydration. UO has been good. Can d/c tomorrow if Cr still improving - Daily CMP and Mg #Hyponatremia/Hypocalcemia - albumin normal; hypocalcemia, in setting of known cancer and active chemotherapy (cisplatin). - Na remains low at 133 - Calcium normalizing; phos 2.9 and albumin 3.0 - Urine osm 492, serum osm 286, urine na 72 - Continue IVF as above - Continue calcium carbonate po #Transaminitis - Possibly drug-induced - pt does take 2 Tylenol per night, vs on cisplatin w/ chemo last week. No infectious symptoms. Denies alcohol use. Hepatitis panel negative; EBV panel suggests past infection. LFTs now improving and near normal range - AM CMP #Factor V liden - H/o PE 03/2023; Apixaban - continue #HTN- Losartan-HCTZ - held in the setting of SIRISHA #Psych- Olanzapine was for during chemo initiation x 4 days, should have been 02/07-02/11 - HOLD #Malignant neoplasm of tongue- Dx 11/2024, receiving radiation currently daily (started January 16) as well as chemotherapy with most recent dose being 02/07 (cisplatin). Follows with heme/onc, most recent visit 01/02/2025. Continued radiation while inpatient Dispo: continued inpatient stay, trending Cr and monitoring for BM VTE prophylaxis: Apixaban Admission and Anticipated Discharge Date Admission Date: February 14, 2025 Subjective NAEO. Patient is feeling well this morning. Did have rectal pain yesterday evening, requiring another 4mg morphine. Has since had 2 BMs. Currently in no pain. Does report still feeling pressure/fullness in rectum. Is doing well with PO and staying well hydrated. Denies MARQUEZ, CP, SOB, dysuria Review of Systems Review of Systems: As per HPI. Physical Exam Physical Exam: Gen: AOx3, NAD, WD/WN HEENT: NCAT, normal conjunctiva, MMM CV: RRR, no m/r/g, normal S1/S2, no LE edema Resp: CTAB, symmetrical chest rise, breathing unlabored Abd: Soft, nontender, +BSx4 MSK: Full ROM, no gross deformities on inspection Skin: Warm, dry, well-perfused Neuro: CN II-XII grossly intact, no focal deficits Psych: Full, euthymic affect. Speech pace and thought content normal. Results & Data Results & Data Vital Signs (Past 12 Hours) Vital Signs Temp Pulse Resp BP Pulse Ox O2 Del Method 02/17/25 07:45 36.7 C 77 22 132/71 92 Room Air Resident Activity Tracking Resident Involvement: Resident Care Provided Care Provided: Adult [facility]
[2025-02-17] MEDS: FIRST - Mouthwash BLM 5 ML UDP PO SCH (15:54)
[2025-02-18 07:13] LABS: Alanine Aminotransferase 61.0 U/L (7-52); Albumin Globulin Ratio 1.3 (0.9-2); Albumin Level 3.0 gm/dl (3.4-5.0); Alkaline Phosphatase 46.0 U/L (34-104); Anion Gap 6.0 (3-11); Bilirubin,Total 0.9 mg/dl (0.2-1.0); Blood Urea Nitrogen 18.0 mg/dl (6-23); Calcium 8.3 mg/dl (8.6-10.3); Carbon Dioxide 30.0 mmol/L (21-32); Chloride 97.0 mmol/L (98-107); Creatinine Clr Calc Pharmacy 54.8 ml/min; Globulin 2.3 gm/dl (2.5-4.0); Glucose 96.0 mg/dl (70-99(Fasting)); Potassium 3.6 mmol/L (3.5-5.1); Sodium 133.0 mmol/L (136-145); Total Protein 5.3 gm/dl (6.0-8.3)
[2025-02-18 07:34] VITALS: PULSE 80; RESP 21; TEMP 97.7; O2SAT 94
[2025-02-18] MEDS: FIRST - Mouthwash BLM 119 ML PO SCH (07:48)
--- NOTE | 2025-02-18 08:48 | Discharge Summary ---
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 Patient reports that he is having pain "directly at my butt hole" which started approximately 3 days [employer] PRO[employer] COORDINATOR. He states that this have increased pressure whenever he is walking at that same area or whenever he is adjusting with sitting. Patient says that he has a history of hemorrhoids, has been using Preparation H over the past 2 to 3 days to try to alleviate some of the symptoms but this has not helped much. He states that nearly everything is irritating to the discomfort and he cannot get comfortable with it. 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 He has not had any bowel movement since then. He did not know any blood or mucus in his stool. Patient is having nausea and dry heaving, but no vomiting. No abdominal pain. Patient has not been sick otherwise, no fever or chills or known sick contacts. He is receiving chemotherapy which his last dose was approximately 1 week ago on 02/2025. He also has radiation daily which was started on 01/16/2025. He denies chest pain, SOB, palpitations, abdominal pain, diarrhea, numbness/tingling, fever/chills, URI symptoms, LUTS, weakness, syncope, or falls. He does take 2 Tylenol per night nearly every night for pain, but denies drinking alcohol. Patient never had these types of symptoms happen before. ED evaluation revealed CBC with leukopenia 4.45, H&H 14.1/40, platelets stable; CMP sodium 133, chloride 92, CO2 33, BUN 37, creatinine 2.36, glucose 109, calcium 8.4, AST 68, ALT 131; UA without infection; CTAP long segment wall thickening rectum and anus may be due to proctocolitis/stercoral proctocolitis with fecal matter resulting in mild impaction as well as inflammatory changes of the urinary bladder.; Provided with 1L NSS in ED. Please see Dr. Horan's attestation for adjustments/additions to treatment plan. Principal Diagnosis proctocolitis, SIRISHA Discharge Exam Gen: AOx3, NAD, WD/WN, somewhat [place] HEENT: NCAT, normal conjunctiva, MMM CV: RRR, no m/r/g, normal S1/S2, no LE edema Resp: CTAB, symmetrical chest rise, breathing unlabored Abd: Soft, nontender, +BSx4 MSK: Full ROM, no gross deformities on inspection Skin: Warm, dry, well-perfused Neuro: CN II-XII grossly intact, no focal deficits Psych: Full, euthymic affect. Speech pace and thought content normal. Discharge Data Allergies Allergy/AdvReac Type Severity Reaction Status Date / Time amoxicillin Allergy Hives Verified 02/13/25 19:12 cefazolin Allergy Hives Verified 02/13/25 19:12 cephalexin Allergy . 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 His evaluation is with mild leukopenia and anemia. CMP does reveal some electrolyte abnormalities, sodium 133, chloride 92 and renal functions of creatinine 2.36. CTAP long segment wall thickening rectum and anus may be due to proctocolitis/stercoral proctocolitis with fecal matter resulting in mild impaction as well as inflammatory changes of the urinary bladder. Patient was admitted for SIRISHA, electrolyte disturbances, rectal pain. Patient was deemed safe for discharge when sx improved, having regular BMs, and labs normalizing. 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 H/o hemorrhoids. No blood in stool. Last BM 02/10. CTAP long segment wall thickening rectum/anus, may be proctocolitis with fecal matter resulting in mild impaction - Bowel regimen: miralax TID, senokot qAM. Had enema 02/15 AM and 85mg miralax 02/16 AM. Began having BMs that night/the following day. - Rectal pain improved as infection/inflammation improved. Pt did periodically need analgesics; 2 x 4mg morphine given IV stat - On 02/17, IVF were discontinued and pt was monitored for consistent po intake. - Started on Cipro 400mg IV q12h + Flagyl 500mg IV q8h and received 4.5 days of abx during stay. Will transition to PO of same at discharge, and will need longer duration of tx given immunocompromised on chemo. - Flagyl 500mg BID for 9 days. Last dose 02/27 PM. - Cipro 400mg BID for 9 days. Also ending 02/27 PM - Also advised patient to stay well-hydrated (goal >= 64 oz water daily) and continue Miralax - 1-5 capfuls TID, modulating exact dose as needed to have 1-2 soft but formed BMs each day #SIRISHA - Likely secondary to renal hypoperfusion due to decreased oral intake. UA without infection. Baseline Cr appears ~1. Level 2.36 on arrival. Improving after IV fluids. 1.76 at discharge - Initial electrolyte derangements: K and Mg repleted 02/14 and 02/16; wnl at discharge - Stopped IVF 02/17. Kidney function stable with just PO fluids, so safe to d/c and expect gradual improvement to continue. Hydration as above - Recommend avoiding nephrotoxic agents - continue to hold lisinopril-HCTZ; can use Tylenol but no NSAIDs if needed for pain #Hyponatremia/Hypocalcemia - albumin normal; hypocalcemia, in setting of known cancer and active chemotherapy (cisplatin). - Na remains low at 133. Calcium normalized; related, phos and albumin normal - Urine osm 492, serum osm 286, urine na 72 - Continue calcium carbonate po #Transaminitis - Possibly drug-induced; no infectious symptoms, denies alcohol use. Improving - Hepatitis panel negative; EBV panel suggests past infection. LFTs progressively improving, nearly wnl at discharge - Likely safe to use low-mod dose of Tylenol for pain #Factor V liden - H/o PE 03/2023; Apixaban - continue #HTN- Losartan-HCTZ - HOLD until meeting with PCP or confirming resolution of SIRISHA #Malignant neoplasm of tongue- Dx 11/2024, receiving radiation currently daily (started January 16) as well as chemotherapy with most recent dose being 02/07 (cisplatin). Follows with heme/onc, most recent visit 01/02/2025. Continued radiation while inpatient Total Time Total Time Spent Total Time Spent (In Minutes): <30 Discharge Plan Discharge Items Patient Disposition: Home - Self-Care Reason For Visit: SIRISHA, HYPONATREMIA, CONSTIPATION Discharge Diagnosis: proctocolitis, SIRISHA Condition on Discharge: Good Activity: Per Instructions section Non-emergency contact: Primary Care Provider Call non-emergency contact if: you have any medication questions, your symptoms worsen, your pain is concerning for you and you have a fever Follow-up/Referrals: Ginny Borjas DO [Primary Care Provider] - 02/26/25 1:10 pm (Date & Time 02/26/2025 1:10 PM Provider: Ginny Borjas DO [facility] ) Diet: Regular Fluids: 2000ml (8 cups) Addtl Attending Provider Instructions: You came to the hospital with severe constipation and rectal pain. Imaging suggested inflammation of your colon and rectum ("proctocolitis"), and you were admitted for pain relief and treatment of possible underlying infection. Initial testing also showed having low sodium ("hyponatremia") and an acute kidney in jury (SIRISHA), which can have various causes including dehydration. You were given IV fluids and antibiotics, and had a bowel regimen that primarily involved an osmotic laxative (Miralax) but did include an enema and a stool softener (docusate). You were deemed safe for discharge when your pain improved, you were having bowel movements again, and your labs began to normalize. You received several days antibiotics, and will need 9 more days to finish your 14-day course. Your kidney function is improving, but not quite back at baseline. The best way to manage this is to stay well-hydrated, consuming at least 64 oz/8 cups of water daily. You should also avoid medications that can harm your kidneys, such as NSAIDs (ibuprofen, advil, motrin). Medications Your medication list has been reviewed and reconciled. An updated list is included with your discharge paperwork; please review this list closely and make note of any changes. We sent a prescription for the antibiotics Flagyl (metronidazole) and ciprofloxacin to your pharmacy. Take one 500mg tablet of each medication twice daily for 9 days. Your last dose for both will be 02/27 evening. We recommend continuing to take Miralax after discharge. You can get this fyaf-mmf-koelkjf medication. Take 1-5 capfuls/packets three times each day, adjusting the exact dosage as needed to have 1-2 gxyq-zrv-[id number] BMs (i.e. not diarrhea) each day. You may also take docusate as a stool softener. You can reduce the dosing after this constipation resolves. You may take Tylenol for pain, up to 1g every 8 hours. Your PCP may want to check your liver function enzymes at your follow-up appointment Take your medications as instructed; do not skip a dose. Make sure all of your doctors know every medicine you are taking (including xaxg-zyf-yrfnjwk medicines, vitamins, and supplements). Follow-up appointments: Make a follow-up appointment with your PCP within the next week. It is very important that you follow up with them shortly after discharge from the hospital. Please bring a copy of this discharge summary so that your provider can review it and stay updated on your hospitalization and potential changes in your care. Contact your PCP if your symptoms return or worsen. Call 911 or go to the ER if you experience any of the following: Sudden, severe abdominal pain or nausea/vomiting Severe chest pain, or chest pain that radiates (moves) to your jaw or arm Sudden, severe shortness of breath or difficulty breathing Thank you for allowing us to participate in your care. Pending Studies at Discharge: No Stand-Alone Forms: [facility] Medications and DC Order Prescriptions: New polyethylene glycol 3350 [Miralax] 17 gram Powder In Packet 17 g PO TID Qty: 100 0RF sennosides-docusate sodium [Senokot-S] 8.6-50 mg Tablet 1 tab PO QAM Qty: 30 0RF ciprofloxacin HCl [Cipro] 500 mg tablet 500 mg PO BID Qty: 19 0RF metronidazole 500 mg tablet 500 mg PO BID Qty: 19 0RF Continued Eliquis 5 mg tablet 5 mg PO BID prochlorperazine maleate [Compazine] 10 mg tablet 10 mg PO Q6H PRN (Reason: Nausea And Vomiting) acetaminophen [Tylenol] 325 mg tablet 650 mg PO QID PRN (Reason: Pain) Magic Mouthwash 300 mL mouthwash 10 ml mucous membrane ACHS Qty: 300 5RF nystatin 100,000 unit/mL suspension 5 ml PO QID 10 Days Qty: 200 4RF Rx Instructions: swish and swallow; HAS NOT PICKED UP FROM PHARMACY ondansetron 8 mg tablet,disintegrating 8 mg PO Q8H PRN (Reason: Nausea And Vomiting) Held losartan-hydrochlorothiazide 50-12.5 mg tablet 1 tab PO QAM Hold Instructions: Until discussion with PCP/resolution of SIRISHA Discontinued olanzapine 2.5 mg tablet See Rx Instructions .ROUTE .COMPLEX Rx Instructions: 2.5 mg orally AT BEDTIME. TAKE FOR 4 DAYS STARTING DAY 1 OF CHEMOTHERAPY FOR NAUSEA Discharge Orders: Discharge Order (Routine); Ordered 02/18/25 Ordered By: Rinku Jimenez Admission Data Admit Date/Time: 02/14/25 19:12 Attending Provider: Zhou Marino Admit Provider: Joby Horan Primary Care Provider: Ginny Borjas Other Providers: Joby Horan Other Interventions: Discharge Summary Assessment (RN) Last Done: 02/18/25 13:00 Supervising Physician Co-Signing Physician Notes I personally examined the patient and verified all chin points of history and exam, discussed case, and agree with decision making with Dr Jimenez Feels much better and would like to go home. Bowels moving. Answered all questions to the best my ability and to his and his 's satisfaction. Vitals noted, in general he is awake and alert pleasant no distress. HEENT normocephalic atraumatic mucous membranes moist. Breathing unlabored no accessory muscle use good effort. Skin without rashes pallor or icterus. Neuro without focal deficits. Proctocolitis with rectal pain/spasm and constipation - Doing better. Safe/stable for home. Finish out course of p.o. antibiotics. Bowel regimen discussedgoal of at least 1 bowel movement daily. SIRISHA - ongoing improvement. Follow-up as outpatientp.o. hydration. Basic metabolic panel in the next few days to a week. Else see resident documentation as noted. Resident Activity Tracking Resident Involvement: Resident Care Provided Care Provided: Adult Hospital Medicine
[2025-02-18] MEDS ORDERED: FIRST - Mouthwash BLM 119 ML PO SCH (11:30)
[2025-02-18 13:01] VITALS: BP 126/71
--- NOTE | 2025-02-18 18:06 | Billing Data ---
Date of Service February 18, 2025 Coding Level of Care Code 49293 IN/OBS DISCH 30 MIN/LESS
== END 2025-02-18 13:34 | disposition home or self-care (01) | DRG 392 ==
LOC: 3N 14:21 → ED 14:21 → SUATTDRO 20:28 → 3N 22:29 → SUATTDRO 02-14 19:12
DX: D68.51 Activated protein C resistance; I10 Essential (primary) hypertension; Z88.8 Allergy status to other drugs, medicaments and biological substances; N17.9 Acute kidney failure, unspecified; K59.00 Constipation, unspecified; E83.51 Hypocalcemia; D84.9 Immunodeficiency, unspecified; K52.9 Noninfective gastroenteritis and colitis, unspecified; Z86.711 Personal history of pulmonary embolism; Z88.1 Allergy status to other antibiotic agents; Z79.899 Other long term (current) drug therapy; K56.49 Other impaction of intestine; Z79.01 Long term (current) use of anticoagulants; Z88.0 Allergy status to penicillin; Z96.653 Presence of artificial knee joint, bilateral; R74.01 Elevation of levels of liver transaminase levels; Z86.718 Personal history of other venous thrombosis and embolism; E87.1 Hypo-osmolality and hyponatremia; M15.9 Polyosteoarthritis, unspecified; C02.9 Malignant neoplasm of tongue, unspecified; Z96.643 Presence of artificial hip joint, bilateral